=== PATIENT | male | born 1970 | race Caucasian/White ===

== ENCOUNTER 2020-01-05 13:56 | Outpatient (CLI) | payer SELFPAY ==
[2020-01-05 15:07] LABS: Alanine Aminotransferase 27 U/L (4-50); Albumin Level 4.4 g/dL (3.5-5.1); Alkaline Phosphatase 92 U/L (38-126); Aspartate Amino Transferase 29 U/L (17-59); Bilirubin,Total 0.9 mg/dL (0.2-1.3); Blood Urea Nitrogen 9 mg/dL (9-20); Carbon Dioxide 25 mmol/L (22-30); Chloride 103 mmol/L (98-107); Cholesterol 221 mg/dL (0-200); Estimated Glomerular Filt Rate > 60; Glucose 131 mg/dL (75-110); HDL Direct 29 mg/dL; Potassium 4.2 mmol/L (3.4-5.0); Sodium 135 mmol/L (137-145); Triglycerides 294 mg/dL (<150)
[2020-01-05 16:28] LABS: LDL Cholesterol Direct 146 mg/dL
== END 2020-01-05 13:57 | disposition home or self-care (01) ==
PROVIDERS: PCP Emergency Medicine; Visit Provider Internal Medicine Cardiovascular Disease
DX: E78.00 Pure hypercholesterolemia, unspecified (principal)
CPT/HCPCS: 36415; 80053; 80061

== ENCOUNTER 2021-08-17 16:42 | Inpatient (IN) | payer OTHER, SELFPAY ==
[2021-08-17] VITALS (22 sets, daily range): BP systolic 125–158; BP diastolic 92–141; PULSE 69–85; RESP 14–30; TEMP 36.6–36.7; O2SAT 97–100
--- NOTE | ~2021-08-17 | XR_ITS ---
EXAMINATION: XR chest 2V EXAM DATE: 08/17/2021 17:10 INDICATION: Chest pain across frontal contrast, radiating to left arm. TECHNIQUE: Frontal and lateral projections of the chest obtained and reviewed. Comparison is made to prior examination from 06/05/2019. FINDINGS: The lungs are clear. There are no pleural effusions. The cardiomediastinal silhouette is within normal limits. There is no pneumothorax suspected. The bones and soft tissues are unremarkab le. There are cholecystectomy clips. IMPRESSION: No acute cardiopulmonary findings. Reviewed, dictated and finalized at location G. LOGGING OPERATOR MUD ANALYSIS
--- NOTE | ~2021-08-17 | CT_ITS ---
EXAMINATION: CTA chest EXAM DATE: 08/17/2021 20:59 INDICATION: chest pain that radiates down left arm. TECHNIQUE: Spiral CT of the chest following intravenous injection of 100 mL Omnipaque 350. Axial, co carl and sagittal images of the chest were reviewed. Coronal maximum intensity pixel images of ches t reviewed. The dose-length product (DLP) for this examination was 735.58 mGy-cm. The exposure was tailored according to patient size (auto mA exposure control), and iterative reconstruction (ASIR) wa s used as additional dose reduction technique. There is no prior study for comparison. FINDINGS: No pulmonary emboli suspected. No thoracic aortic dissection. Thoracic aorta is normal in caliber. There is moderate-sized gastroesophageal hiatal hernia. There is 3 mm right upper lobe nonca lcified granuloma. There is mosaic attenuation involving both lungs. This is suspected to be most likely due to expirato ry phase of imaging. Differential diagnosis for this includes air trapping (asthma, bronchiolitis ob literans), vasculitis, or groundglass opacity. Groundglass opacity can be caused acutely by edema, i nfection (viral pneumonia or PCP in an immunocompromised patients) or hemorrhage. It can also be cau sed by chronic processes such as hypersensitivity pneumonitis, nonspecific interstitial pneumonitis ( NSIP), cryptogenic organized pneumonia, desquamative interstitial pneumonitis(DIP). There are no pleural or pericardial effusions. Tracheobronchial tree is patent. There is no media stinal, hilar or axillary lymphadenopathy. There is no pneumothorax. Heart normal in size. Ther e is moderate coronary arterial calcification, arterial sclerosis. There are cholecystectomy clips. There is thoracic spondylosis without osteoblastic or osteolytic lesions identified. IMPRESSION: 1. Faint bilateral mosaic attenuation, probably some air trapping but can't exclude faint groundglas s airspace disease. 2. Moderate-sized gastroesophageal hiatal hernia. Reviewed, dictated and finalized at location G. SHORT AND DAMAGE CLERK IMPRESSION: 1. Faint bilateral mosaic attenuation, probably some air trapping but can't ex clude faint groundglass airspace disease. 2. Moderate-sized gastroesophageal hiatal hernia.
--- NOTE | 2021-08-17 16:45 | ECG_ITS ---
Measurements Intervals [place] Rate: 77 P: 33 UT: 149 QRS: 39 QRSD: 98 T: 61 QT: 356 QTc: 404 Interpretive Statements SINUS RHYTHM INCOMPLETE RIGHT BUNDLE BRANCH BLOCK BORDERLINE ECG Electronically Signed On 08-17-2021 17:31:59 CLINICAL RESEARCH NURSE by Matthew Herrera D.O.
[2021-08-17 17:10] LABS: Basophils Absolute Auto 0.1 K/mm3 (0.0-0.1); Eosinophils Absolute Auto 0.1 K/mm3 (0-0.3); Eosinophils Percent Auto 1.6 % (0-4.4); Hematocrit 46.7 % (42.0-52.0); Hemoglobin 15.6 g/dL (14.0-18.0); Immature Granulocyte Absolute 0.03 K/mm3 (0.00-0.031); Immature Granulocyte Percent A 0.4 % (0-0.5); Lymphocytes Absolute Auto 3.02 K/mm3 (0.9-3.2); Lymphocytes Percent Auto 36.3 % (18.3-44.2); Mean Corpuscular HGB Conc 33.4 g/dl (32-36); Mean Corpuscular Hemoglobin 29.6 pg (26-34); Mean Corpuscular Volume 88.6 fl (80-100); Mean Platelet Volume 8.9 fl (7.4-10.4); Monocytes Absolute Auto 0.9 K/mm3 (0.1-0.6); Monocytes Percent Auto 10.5 % (2.6-8.5); Neutrophils Absolute Auto 4.2 K/mm3 (1.3-6.7); Neutrophils Percent Auto 50.2 % (45.5-73.1); Platelet Count Result 445 k/mm3 (150-375); Red Blood Count 5.27 M/mm3 (4.6-6.20); Red Cell Distribution Width 12.3 % (11.5-14.5); White Blood Count 8.3 K/mm3 (4.5-10.0)
[2021-08-17 17:20] LABS: INR 0.9; Prothrombin Time 12.1 Seconds (11.1-14.7)
[2021-08-17 17:21] LABS: Alanine Aminotransferase 23 U/L (4-50); Albumin Level 4.4 g/dL (3.5-5.1); Alkaline Phosphatase 110 U/L (38-126); Anion Gap 12 mmol/L (8-16); Aspartate Amino Transferase 25 U/L (17-59); Bilirubin,Total 0.5 mg/dL (0.2-1.3); Blood Urea Nitrogen 16 mg/dL (9-20); Calcium 9.2 mg/dL (8.4-10.2); Carbon Dioxide 22 mmol/L (22-30); Chloride 102 mmol/L (98-107); Estimated CRCL calculation 83 ml/min; Estimated Glomerular Filt Rate > 60; Glucose 135 mg/dL (65-110); Lipase 56 U/L (23-300); Partial Thromboplastin Time 25.5 SECONDS (22.3-36.8); Potassium 4.1 mmol/L (3.4-5.0); Sodium 136 mmol/L (137-145)
[2021-08-17 17:32] LABS: Troponin I < 0.012 ng/mL (0.000-0.034)
[2021-08-17 20:27] LABS: Troponin I 0.133 ng/mL (0.000-0.034)
--- NOTE | 2021-08-17 20:31 | ED.CHESTPAIN ---
HPI - Chest Pain General Chief Complaint: Chest Pain Stated Complaint: CHEST PAIN, HX PA Time Seen by Provider: 08/17/21 19:53 History of Present Illness HPI narrative: Patient is a 51-year-old male who presents ER with chest pain. Occurred around 330 this afternoon. Central and pressure. Intense radiating up into the neck, down the left arm, and into the left hip. Lasted 15 minutes and then improved on its own. He has had persistent central chest pressure since then. No nausea/vomiting/diaphoresis. No abdominal bloating. No association with eating or drinking. Has history of PA x2. He sees Dr. Herrera. Reports he takes baby aspirin daily as well as niacin. He continues to smoke cigarettes. Related Data Home Medications Medication Instructions Recorded Confirmed aspirin [Aspirin Low Dose] 81 mg PO BID 08/18/21 08/18/21 niacin 500 mg PO BID 08/18/21 08/18/21 Allergies Allergy/AdvReac Type Severity Reaction Status Date / Time tomato Allergy Severe Anaphylaxis Verified 08/18/21 00:12 acetaminophen Allergy Intermediate Vomiting Verified 08/17/21 19:24 Review of Systems Review of Systems: All systems reviewed & are unremarkable except as noted in HPI and below Constitutional: Constitutional: Denies chills, Denies fever(s) and Denies weakness ENT: Denies nasal congestion and Denies sore throat Cardiovascular: Cardiovascular: Reports chest pain, Denies rapid heart rate and Reports radiating jaw, neck or arm pain Respiratory: Respiratory: Denies cough, Denies dyspnea and Denies wheezing Gastrointestinal: Gastrointestinal: Denies abdominal pain, Denies bloating, Denies diarrhea, Denies nausea and Denies vomiting Genitourinary: Genitourinary: Denies urinary frequency and Denies urinary incontinence Neurologic: Denies headache(s), Denies focal weakness and Denies numbness [facility] Past Medical History Medical History (Updated 08/18/21 @ 04:02 by Mary Li DO) Diastolic dysfunction Echocardiogram 06/06/2019: EF 65-70%, mild LVH, grade 1 diastolic dysfunction, [id number] aortic insufficiency Hypercholesteremia Hypertriglyceridemia Methamphetamine abuse in remission Myocardial infarction Non-ST elevated myocardial infarction (non-STEMI) Multi-vessel coronary artery disease with 2 cardiac catheterizations October 2018 and June 2019 Recovering alcoholic in remission Right hand fracture Skull fracture Tobacco abuse disorder Ulcer Surgical History Surgical History (Updated 08/18/21 @ 03:58 by Mary Li DO) History of cardiac catheterization October 2018 and June 2019. History of heart artery stent Patient was transferred to [facility] October 2018 persistent to his left circumflex. He was transferred due to high risk PCI Hx of cholecystectomy Hx of tonsillectomy Status post open reduction with internal fixation of fracture Right 4th metacarpal Family History Family History Mother Diabetes mellitus Heart disease Family history of diabetes mellitus in first degree relative Family history of emphysema Family history of chronic obstructive pulmonary disease Cerebrovascular accident Family history of alcoholism Hypertension Sibling Sleep apnea Sibling Sleep apnea Grandparent , Grandfather with premature coronary artery disease Family history of cardiovascular disease Family history of arthritis Father Family history of alcoholism Social History Social History (Updated 08/18/21 @ 03:48 by Mary Li DO) Social History: The patient reports that he has smoked up to 1.5 packs of cigarettes per day. He is now down to less than a pack of cigarettes per day. He started smoking at age 87 years old. He lives in a house with 7 other individuals including his 2 children, and 4 step children. He has 6 dogs. He used any smoke methamphetamines and crack cocaine but states he has not done so in 13 years
[2021-08-17] MEDS: HEPARIN SODIUM 5,000 UNITS/ML VIAL 4000 UNITS IV PUSH (21:27)
[2021-08-17] MEDS: NITROGLYCERIN OINTMENT 1 INCH DOSE 0.5 INCH TRANSDERM (21:27)
[2021-08-17] MEDS: HEPARIN SOD/D5W 100 UNITS/ML 25,000 UNITS/250 ML BAG 9 UNITS IV CONT (21:28)
[2021-08-17 23:39] LABS: Troponin I 0.571 ng/mL (0.000-0.034)
--- NOTE | 2021-08-17 23:55 | PM.IMHP ---
H&P: HPI History of Present Illness Date/Time: 08/17/21 22:25 Chief Complaint: Chest pain Narrative: 51-year-old male with past medical history coronary artery disease status post left circumflex stent, continued tobacco use, and noncompliance with cholesterol medications and dual antiplatelet therapy who presented to the ER via private vehicle with chest pain. The patient reported he started having left-sided chest pain that progressed into central chest pain and radiated up to the neck and down the left arm. The pain was a 7/10 in intensity and occurred at rest. He denied having any associated shortness of breath or diaphoresis. The pain was described as tight nature and similar to when he had his non STEMI in June of 2019. Patient and initially had difficulty with heart disease in October of 2018 at which time he had a cardiac catheterization at [facility] and was found to have complex disease and was sent to [facility] for intervention. He had a left circumflex drug-eluting stent placed. Shortly after his procedure he quit taking his Brilinta. The patient was then readmitted to the hospital June 2019 and had repeat cardiac catheterization which demonstrated 40-50% mid LAD stenosis with ectasia leading to a very small diminutive vessel with sluggish blood flow, patent distal left circ stent without significant luminal loss, ostial stenosis of OM 3 branch, mild nonobstructive disease of dominant RCA and preserved ejection fraction with EF of 70%. The patient followed up with Dr. Herrera Cardiology January 2020 but has not seen a physician since that time. He stated he lost his insurance and does not have a job. He recently reinstated his insurance. He states he has been taking 3 in 25 mg of aspirin b.i.d. and 500 mg of niacin b.i.d.. He has not been taking any other anti-platelet medications. He still continues to smoke a little less than a pack of cigarettes per day. He denies any lower extremity swelling or orthopnea. His daughter was at bedside states that the patient does snore. He is extremely poor dental health and reports that his teeth hurt on a daily basis. He has never had a colonoscopy. He denies any hematochezia or melena. He denies any symptoms of claudication. The patient did provide consent for his daughter to remain in the room while discussing his medical care. He is an [employer] but refuses to seek medical care at the [facility]. He states he would rather go without medical benefits than be evaluated at the [facility]. Review of Systems Review of Systems: 12 systems were reviewed with pertinent positives and negatives per HPI. Except as documented in the HPI, all other systems were reviewed and are negative. [facility] Past Medical History Medical History (Updated 08/18/21 @ 04:02 by Mary Li DO) Diastolic dysfunction Echocardiogram 06/06/2019: EF 65-70%, mild LVH, grade 1 diastolic dysfunction, [id number] aortic insufficiency Hypercholesteremia Hypertriglyceridemia Methamphetamine abuse in remission Myocardial infarction Non-ST elevated myocardial infarction (non-STEMI) Multi-vessel coronary artery disease with 2 cardiac catheterizations October 2018 and June 2019 Recovering alcoholic in remission Right hand fracture Skull fracture Tobacco abuse disorder Ulcer Surgical History Surgical History (Updated 08/18/21 @ 03:58 by Mary Li DO) History of cardiac catheterization October 2018 and June 2019. History of heart artery stent Patient was transferred to [facility] October 2018 persistent to his left circumflex. He was transferred due to high risk PCI Hx of cholecystectomy Hx of tonsillectomy Status post open reduction with internal fixation of fracture Right 4th metacarpal Family History Family History Mother Diabetes mellitus Heart disease Family history of diabetes mellitus in first degree relat
--- NOTE | 2021-08-17 23:55 | ADMGEN ---
This patient, Edgar Mccall, was admitted to IMU Room 200-01. Patient/family oriented to hospital policies and general routines including ID bracelet, bed and alarms, visiting hours, pain management, procedures, bathroom and other care routines, personal items, smoking policy, room service/diet, and visiting hours. Information on how to activate the Rapid Response Team has been discussed. Patient/Family are encouraged to report perceived risks to care and to ask questions if they do not understand what they are told or what they should do.
[2021-08-18] VITALS (24 sets, daily range): BP systolic 112–136; BP diastolic 60–97; PULSE 66–100; RESP 16–20; TEMP 35.8–36.6; O2SAT 96–100
--- NOTE | 2021-08-18 | ECHO_ITS ---
Patient Info Name: Edgar Mccall Age: 51 years : 1970 Gender: Male Ht: 66 in Wt: 209 lbs BSA: 2.14 m2 HR: 88 bpm BP: 122 / 60 mmHg Heart Rhythm: Sinus Rhythm Technical Quality: Fair Exam Date: 08/18/2021 12:58 PM Exam Location: [facility] Pulmonary Patient Status: Inpatient Admit Date: 08/18/2021 Staff Ordering Physician: Matthew Herrera DO Spring Layer: Melissa Peck RDCS Attending Provider: Mary Li DO Referring Physician: Javier LEWIS; Exam Type: CA echo dop color flow w con Study Info Indications - nstemi Complete two-dimensional, color flow and Doppler transthoracic echocardiogram is performed. Summary 1. Complete two-dimensional, color flow and Doppler transthoracic echocardiogram is performed. 2. Left ventricular chamber dimension is normal. 3. Definity contrast administered improved wall motion interpretation. 4. Left ventricular systolic function is normal, estimated at 65-70%. 5. The left ventricular diastolic function is normal. 6. E/e' 9 is minimally elevated. 7. There is mild aortic valve sclerosis. 8. No pulmonary hypertension, estimated pulmonary arterial systolic pressure is 16 mmHg. Left Ventricle E/e' 9 is minimally elevated. Definity contrast administered improved wall motion interpretation. Left ventricular chamber dimension is normal. Left ventricular systolic function is normal, estimated at 65-70%. The left ventricular diastolic function is normal. Right Ventricle Right ventricular systolic function is normal and with normal TAPSE 1.9 cm. Right ventricular chamber dimension is normal. Left Atria Left atrial chamber dimension is normal. Right Atria Right atrial chamber dimension is normal. Aortic Valve The aortic valve is trileaflet. There is mild aortic valve sclerosis. There is no aortic valve stenosis. There is no aortic valve regurgitation. Pulmonic Valve There is no pulmonic regurgitation. Mitral Valve There is no mitral valve stenosis. There is no mitral valve regurgitation. Tricuspid Valve There is no tricuspid valve regurgitation. No pulmonary hypertension, estimated pulmonary arterial systolic pressure is 16 mmHg. Pericardium/Pleural There is no pericardial effusion. Inferior Vena Cava Normal inferior vena cava with >50% collapse upon inspiration consistent with normal right atrial pressure, 5 mmHg. Aorta The aortic root size at the sinus of Valsalva is normal. Left Ventricular Outflow Tract Name Value Normal LVOT 2D LVOT Diameter 1.96 cm LVOT Doppler LVOT Peak Gradient 5 mmHg LVOT Mean Gradient 2 mmHg LVOT VTI 21.63 cm LVOT VTI/AV VTI Ratio 0.86 LVOT Stroke Volume 64.98 ml LVOT CO 4.25 l/min LVOT CI 1.99 L/min/m2 Pulmonic Valve Name Value Normal
[2021-08-18 03:44] LABS: Basophils Absolute Auto 0.1 K/mm3 (0.0-0.1); Basophils Percent Auto 1.1 % (0.2-1.2); Eosinophils Absolute Auto 0.2 K/mm3 (0-0.3); Eosinophils Percent Auto 1.6 % (0-4.4); Hematocrit 44.6 % (42.0-52.0); Hemoglobin 14.9 g/dL (14.0-18.0); Immature Granulocyte Absolute 0.05 K/mm3 (0.00-0.031); Immature Granulocyte Percent A 0.4 % (0-0.5); Lymphocytes Absolute Auto 4.74 K/mm3 (0.9-3.2); Lymphocytes Percent Auto 41.8 % (18.3-44.2); Mean Corpuscular HGB Conc 33.4 g/dl (32-36); Mean Corpuscular Hemoglobin 29.7 pg (26-34); Monocytes Percent Auto 8.9 % (2.6-8.5); Neutrophils Absolute Auto 5.2 K/mm3 (1.3-6.7); Neutrophils Percent Auto 46.2 % (45.5-73.1); Platelet Count Result 411 k/mm3 (150-375); Red Blood Count 5.01 M/mm3 (4.6-6.20); Red Cell Distribution Width 12.5 % (11.5-14.5); White Blood Count 11.3 K/mm3 (4.5-10.0)
[2021-08-18 03:59] LABS: Partial Thromboplastin Time 31.5 SECONDS (22.3-36.8)
[2021-08-18 04:22] LABS: LDL Cholesterol Direct 129 mg/dL
[2021-08-18] MEDS: HEPARIN SODIUM 5,000 UNITS/ML VIAL 4000 UNITS IV PUSH (04:22)
[2021-08-18 04:23] LABS: Cholesterol 246 mg/dL (0-200); HDL Direct 28 mg/dL
[2021-08-18 04:55] LABS: Triglycerides 635 mg/dL (<150)
--- NOTE | 2021-08-18 07:54 | PM.CNCAR ---
Assessment and Plan Assessment and plan (1) Non-STEMI (non-ST elevated myocardial infarction): Code(s): I21.4 - Non-ST elevation (NSTEMI) myocardial infarction Status: Acute Assessment and Plan: On aspirin, heparin drip. Start Metoprolol Tartate 12.5 mg BID, Atorvastatin 80 mg daily. He was non-compliant taking cardiac medication due to cost and no health insurance per patient. Obtain echo. Discussed with Dr. Murillo for [facility] today. Keep NPO. Risks/benefits/alternative treatment discussed with patient and he is agreeable for procedure. (2) CAD (coronary artery disease): Qualifiers: Coronary Disease-Associated Artery/Lesion type: [place] artery [place] vs. transplanted heart: [place] heart Associated angina: angina presence unspecified Qualified Code(s): I25.10 - Atherosclerotic heart disease of [place] coronary artery without angina pectoris Code(s): I25.10 - Atherosclerotic heart disease of [place] coronary artery without angina pectoris Status: Acute (3) Tobacco abuse disorder: Code(s): Z72.0 - Tobacco use Status: Chronic Assessment and Plan: Counseled regarding smoking cessation. (4) Hypercholesteremia: Code(s): E78.00 - Pure hypercholesterolemia, unspecified Status: Chronic Assessment and Plan: Start Atorvastatin. (5) Hypertension: Qualifiers: Hypertension type: primary hypertension Qualified Code(s): I10 - Essential (primary) hypertension Code(s): I10 - Essential (primary) hypertension Status: Acute Assessment and Plan: Stable. History of Present Illness History of Present Illness Consult date/time: 08/18/21 07:54 Reason for consult: NSTEMI. Patient is a 51 yr old man who is my regular cardiology patient presents to ED with chest pain. He has a history of CAD, hypertension, dyslipidemia, smoking. Reports chest pain started yesterday at 3 pm while resting and watching tv. He describes it as pressure like in left chest radiating to jaw and down his side to his left hip. No pain currently with NTP. He is smoking >1 ppd. Denies sob, orthopnea, PND, edema, dizziness, palpitations. EKG: Sinus rhythm, IRBBB. CXR: Unremarkable. CTA chest shows faint bilateral mosaic attenuation, probably air trapping. Moderate hiatal hernia. CBC and CMP are OK. Trop trending p from 0.13, to 0.57 to 1.7. Cardiovascular Procedures 06/09/[address] Pino: 40-50% mid LAD then ectasia and diminishes in size with sluggish flow; patent distal LCx stent; 70-80% distal LCx at branch point to PL branch. Cath (Dr. Pino at [facility]: Stenting of LCx with SHAAN with good results.) - 11/18/2018 Cath (Dr. Murillo for NSTEMI: LAD ectasia prox portion with 40-50% stenosis, Diag origin 80-90%, after Diag LAD 90%, distal LCx eccentric 90-95% at bifurcation of PL branch, RCA 30-40% distal. Referred for CABG for high risk PCI.) - 11/16/2018 Echo/[facility]GA:: Echo: EF 65-70%, mild LVH, grade I diastolic dysfunction, mild-mod AI. 06/06/19 Echo (EF 55-60%, hypokinetic inferolateral segment, mild LAE, mild MAC, trace AI, mild TR.) - 11/16/2018 Electrophysiology:: EKG (Sinus rhythm with sinus arrhythmia.) - 11/15/2018 Reason For Visit: nstemi Review of Systems Review of Systems: All systems reviewed & are unremarkable except as noted in HPI and below Constitutional: Constitutional: Reports as per HPI, Denies chills and Denies fever(s) Cardiovascular: Cardiovascular: Reports as per HPI, Reports chest pain, Denies leg edema and Denies lightheadedness Respiratory: Respiratory: Reports as per HPI and Denies dyspnea Gastrointestinal: Gastrointestinal: Reports as per HPI and Denies abdominal pain Genitourinary: Genitourinary: Reports as per HPI and Denies dysuria Musculoskeletal: Musculoskeletal: Reports as per HPI Neurologic: Reports as per HPI, Denies dizziness and Denies syncope PENDING SALE TO [facility] Past Medical History Medical History (Updated 08/18/21 @ 04:02 by Ammon
[2021-08-18] MEDS: ATORVASTATIN 40 MG TABLET 80 MG PO (07:56)
[2021-08-18] MEDS: ASPIRIN 81 MG ENTERIC TABLET PO (07:56)
[2021-08-18] MEDS: METOPROLOL TARTRATE 12.5 MG TABLET PO ×2 (07:56→21:37)
--- NOTE | 2021-08-18 08:36 | WPDMODSED ---
Moderate Sedation Note-Pt Data Patient Data Diagnosis: Acute coronary syndrome/non ST elevation [place] Present Complaint: Chest pain with radiation to left arm Procedure to be performed/Plan: Left heart catheterization Allergies Allergy/AdvReac Type Severity Reaction Status Date / Time tomato Allergy Severe Anaphylaxis Verified 08/18/21 00:12 acetaminophen Allergy Intermediate Vomiting Verified 08/17/21 19:24 Home Medications Medication Instructions Recorded Confirmed Type aspirin [Aspirin Low Dose] 81 mg PO BID 08/18/21 08/18/21 History niacin 500 mg PO BID 08/18/21 08/18/21 History Current Medications: Active Medications Aspirin (Aspirin 81 Mg Enteric Tablet) 81 mg PO QAM [facility] Last Admin: 08/18/21 07:56 Dose: 81 mg Documented by: Atorvastatin Calcium (Atorvastatin 40 Mg Tablet) 80 mg PO DAILY [facility] Last Admin: 08/18/21 07:56 Dose: 80 mg Documented by: Heparin Sodium (Porcine) (Heparin Sodium 5,000 Units/Ml Vial) 4,000 units IV PUSH PRN PRN PRN Reason: aPTT less than 55 seconds Last Admin: 08/18/21 04:22 Dose: 4,000 units Documented by: Heparin Sodium (Porcine) (Heparin Sodium 5,000 Units/Ml Vial) 3,000 units IV PUSH PRN PRN PRN Reason: aPTT 55 - 70 seconds Heparin Sodium/Dextrose (Heparin Sodium/D5w 100 Units/Ml) 25,000 units in 250 mls @ 12 mls/hr IV CONT .[id number] [facility]; Protocol Last Infusion: 08/18/21 04:25 Dose: 1,200 units/hr, 12 mls/hr Documented by: Metoprolol Tartrate (Metoprolol Tartrate 12.5 Mg Tablet) 12.5 mg PO Q12HR [facility] Last Admin: 08/18/21 07:56 Dose: 12.5 mg Documented by: Morphine Sulfate (Morphine Sulfate (*Crx) 4 Mg/Ml Inj) 4 mg IV PUSH Q2H PRN PRN Reason: Pain Rated 7-10 Niacin (Niacin Sa 500 Mg Tablet) 1,000 mg PO HS [facility] Non-Formulary Medication (Vascepa) 2 gram(s) BY MOUTH BID [facility] Stop: 09/17/21 08:59 Ondansetron HCl (Ondansetron Inj 4 Mg/2 Ml Vial) 4 mg IV PUSH Q4H PRN PRN Reason: Nausea Sedation/Anesthesia: No previous sedation/anesthesia problems (including family history). [facility] Past Medical History Medical History (Updated 08/18/21 @ 04:02 by Mary Li DO) Diastolic dysfunction Echocardiogram 06/06/2019: EF 65-70%, mild LVH, grade 1 diastolic dysfunction, [id number] aortic insufficiency Hypercholesteremia Hypertriglyceridemia Methamphetamine abuse in remission Myocardial infarction Non-ST elevated myocardial infarction (non-STEMI) Multi-vessel coronary artery disease with 2 cardiac catheterizations October 2018 and June 2019 Recovering alcoholic in remission Right hand fracture Skull fracture Tobacco abuse disorder Ulcer Surgical History Surgical History (Updated 08/18/21 @ 03:58 by Mary Li DO) History of cardiac catheterization October 2018 and June 2019. History of heart artery stent Patient was transferred to [facility] October 2018 persistent to his left circumflex. He was transferred due to high risk PCI Hx of cholecystectomy Hx of tonsillectomy Status post open reduction with internal fixation of fracture Right 4th metacarpal Family History Family History Mother Diabetes mellitus Heart disease Family history of diabetes mellitus in first degree relative Family history of emphysema Family history of chronic obstructive pulmonary disease Cerebrovascular accident Family history of alcoholism Hypertension Sibling Sleep apnea Sibling Sleep apnea Grandparent , Grandfather with premature coronary artery disease Family history of cardiovascular disease Family history of arthritis Father Family history of alcoholism Social History Social History (Updated 08/18/21 @ 03:48 by Mary Li DO) Social History: The patient reports that he has smoked up to 1.5 packs of cigarettes per day. He is now down to less than a pack of cigarettes per day. He started smoking at age 87 years old. He lives in a house with 7 other individual
--- NOTE | 2021-08-18 09:05 | PCCARD ---
NITRO PASTE REMOVED.
--- NOTE | 2021-08-18 09:36 | WPDCARDPROC ---
Cardiac Cath Procedure Note Date of procedure:: 08/18/21 Performing physician:: Arsenio uMrillo MD Indication:: Acute coronary syndrome/ non ST-elevation PA Brief clinical history:: this is a 51-year-old man known to have coronary disease with previous PCI to the circumflex. He continues to smoke cigarettes and is not compliant with his medication. He therefore not surprisingly came into the hospital with ischemic chest pain and had a modest troponin rise in this setting a follow-up angiogram has been recommended. Procedure Procedure performed:: Left ventriculogram coronary angiogram Angio-Seal to right femoral artery Sedation/Medication given:: fentanyl 50 mg Versed 2 mg case start time 9:12 a.m. case end time 9:29 a.m. sedation provided by Abigail Lawton RN, trained observer Access site:: right femoral artery Estimated blood loss:: 20 cc Procedure note:: patient was brought to the cardiac catheterization lab in the postabsorptive state where the right femoral triangle was prepared and draped in the normal fashion. Anesthesia was provided with 1% lidocaine infiltrated locally. Using the modified Seldinger technique the femoral artery was punctured and a 5 vascular sheath was placed. After this I used a 5 [place] angled pigtail catheter to measure left-sided hemodynamics and to inject LV g in the 30 degree our AO projection. After this the right coronary artery was engaged and injected using a standard 5 [place] JR4 catheter. The left coronary was then engaged and injected in multiple projections using standard 5 [place] FL4 catheter. The cine angiograms were then reviewed and the case was terminated was done of the femoral artery through the sheath after which an Angio-Seal device was deployed with a good hemostatic result. There were no apparent procedural complications he left the medical laboratory technical officer with no evidence of a groin hematoma. Findings:: Hemodynamics: Central aortic pressure was 126/76 left ventricle 126 over to end-diastolic pressure 14 there is no systolic gradient on pullback across the aortic valve. Left ventricle: The LV is normal in size the anteroapical segment is severely hypodynamic but not completely akinetic the remainder of the LV contracts well global ejection fraction is 55% by visual estimation. The left main coronary artery is short but nicely patent the left anterior descending artery is calcified and ectaticaly dilated proximally there is diffuse disease in the proximal 3rd of the LAD of about 40-50% stenosis. From the midportion to the apex the LAD is extremely small and diminutive in size. Angiographically unchanged compared with 2019 circumflex is a moderate caliber artery giving rise to 3 marginal branches and a posterior branch. There is diffuse disease of about 50% in 1st OM branch. The 2nd OM branch is diffusely diseased and extremely small in caliber. The 3rd OM branch is moderate size has a high-grade proximal stenosis of 80-90%. the trunk of the circumflex is stented with no significant loss of lumen in this case segment. The stented segment of the trunk of the circumflex with is across the origin of the 3rd OM branch that is described above. Angiographically this vessel was unchanged compared with 2019 the right coronary artery is large caliber and dominant to the posterior circulation the right coronary artery has mild diffuse disease in the 3rd portion there is a segment with about 50% stenosis. Once again angiographically this is unchanged compared with 2019 Conclusion:: 1. diffuse coronary artery disease with ongoing patency of the distal circumflex stent that was deployed in the remote past 2. proximal ectasia of the LAD with extremely small caliber of the distal LAD. This is a chronic finding 3. disease in the 3 marginal branches described above with patent stent in the trunk of the circumflex that was deployed a long time ago. Angiographically these lesions are
--- NOTE | 2021-08-18 10:36 | SUR.PHASEII ---
REPORT CALLED TO CELESTE BERNAL FROM IMU.
[2021-08-18] MEDS: SODIUM CHLORIDE 0.9% IV 1,000 ML 125 ML IV CONT (11:15)
[2021-08-18 12:32] LABS: Partial Thromboplastin Time 26.3 SECONDS (22.3-36.8)
[2021-08-18] MEDS: PERFLUTREN LIPID MICROSPHERES 1.5 ML VIAL DILUTED TO 10 ML TOTAL VOLUME IV PUSH (13:39)
--- NOTE | 2021-08-18 14:18 | PM.IMPN ---
Progress Note: A&P Assessment and Plan (1) Non-STEMI (non-ST elevated myocardial infarction): Code(s): I21.4 - Non-ST elevation (NSTEMI) myocardial infarction Status: Acute (2) Obesity: Qualifiers: Obesity type: due to excess calories Obesity classification: adult class 1 (BMI 30 - 34.9) Serious obesity comorbidity presence: with serious comorbidity Body mass index: BMI 34.0-34.9 Qualified Code(s): E66.09 - Other obesity due to excess calories; Z68.34 - Body mass index [BMI] 34.0-34.9, adult Code(s): E66.9 - Obesity, unspecified Status: Acute (3) Hypertension: Qualifiers: Hypertension type: primary hypertension Qualified Code(s): I10 - Essential (primary) hypertension Code(s): I10 - Essential (primary) hypertension Status: Acute (4) Patient non adherence: Code(s): Z91.19 - Patient's noncompliance with other medical treatment and regimen Status: Acute (5) Hypercholesteremia: Code(s): E78.00 - Pure hypercholesterolemia, unspecified Status: Chronic (6) Tobacco abuse disorder: Code(s): Z72.0 - Tobacco use Status: Chronic Additional Plan The patient presents to the ER with chest pain and has non STEMI with elevated troponins. Patient has known coronary artery disease with history of medical noncompliance. Will place patient on baby aspirin daily continue home niacin. Fasting lipid panel has been ordered. Cardiology has been consulted. The patient denies any symptoms of congestive heart failure at this time will defer repeating echocardiogram to discretion of the curb setter. Patient's pain is improved after nitroglycerin paste administration. Will continue heparin drip. Troponins are still trending upward. Will repeat troponin with a.m. labs. Patient did have elevated blood pressures but improved after nitropaste administered. Will defer antihypertensive medication treatment to Cardiology Service. The patient seems reluctant to spend any money on medications focusing on [place] medication options would likely be best. Greater than 10 minutes was spent in smoking cessation education. Extensive time was also spent in discussing the importance of adherence to medication regimens specially given the patient's extensive cardiac history and how medication nonadherence and tobacco abuse is shortening his life span. Patient does snore and would benefit from an outpatient sleep study. He would also benefit from diet and lifestyle modification. 08/18/21 Patient has had acute NSTEMI Left heart catheterization shows multivessel disease Case reviewed with Cardiology recommendations appreciated Lovenox full-dose anticoagulation b.i.d. until discharge Will trend troponins anticipate discharge after downward trend Continued smoking cessation Education required Subjective Date/time seen: 08/18/21 14:18 Patient feeling fine undergoing echocardiogram time of my evaluation he is interested in going home however he is noted to have elevated troponin. Case reviewed with Cardiology. Orders placed Exam Narrative: PHYSICAL EXAM: General: Poor hygiene, appears older than stated age, obese HEENT: Multiple dental caries broken off at the gumline, periodontitis, pupils are equal and reactive, no oral pharyngeal erythema, tobacco staining of facial hair Respiratory: Decreased breath sounds bilaterally, no increased work of breathing Cardiovascular: Regular rate, regular rhythm, 2+ bilateral radial pedal pulses Gastrointestinal: Soft, nontender, obese, normoactive bowel sounds Skin: Tobacco staining to the fingers, no jaundice, no pallor Musculoskeletal: No clubbing, cyanosis or edema Neurological: Alert and oriented, speech is clear, no facial asymmetry Psychiatric: Appropriate mood and affect, cooperative Objective Data Vital Signs Vital Signs: Vital Signs - 24 hr 08/17/21 16:50 08/17/21 19:23 08/17/21 19:24 Temperature 97.8 F
[2021-08-18] MEDS: ENOXAPARIN 100 MG/ML SYRINGE 95 MG SUB-Q (15:33)
[2021-08-18] MEDS: CLOPIDOGREL BISULFATE 300 MG TABLET PO (15:41)
[2021-08-18] MEDS: NIACIN SA 500 MG TABLET 1000 MG PO (21:37)
[2021-08-19] VITALS (9 sets, daily range): BP systolic 99–120; BP diastolic 64–89; PULSE 67–88; RESP 18–20; TEMP 36.1–37.1; O2SAT 75–99
[2021-08-19] MEDS: ENOXAPARIN 100 MG/ML SYRINGE 95 MG SUB-Q (02:47)
--- NOTE | 2021-08-19 08:06 | PM.PNCARD ---
Progress Note: A&P Assessment and Plan (1) Non-STEMI (non-ST elevated myocardial infarction): Code(s): I21.4 - Non-ST elevation (NSTEMI) myocardial infarction Status: Acute Assessment and Plan: On aspirin, lovenox. On Metoprolol Tartate 12.5 mg BID, Atorvastatin 80 mg daily. He was non-compliant taking cardiac medication due to cost and no health insurance per patient. 08/18/21 Echo shows EF 60-65%. 08/18/21 [facility] with Dr. Murillo shows essentially unchanged coronaries from 2019 with moderate disease and sluggish flow. Continue antiplatelet agents with aspirin and Clopidogrel. Stop Lovenox. November d/c home from cardiology standpoint and f/u with me in 2 weeks. (2) CAD (coronary artery disease): Qualifiers: Coronary Disease-Associated Artery/Lesion type: [place] artery [place] vs. transplanted heart: [place] heart Associated angina: angina presence unspecified Qualified Code(s): I25.10 - Atherosclerotic heart disease of [place] coronary artery without angina pectoris Code(s): I25.10 - Atherosclerotic heart disease of [place] coronary artery without angina pectoris Status: Acute (3) Tobacco abuse disorder: Code(s): Z72.0 - Tobacco use Status: Chronic Assessment and Plan: Counseled regarding smoking cessation. (4) Hypercholesteremia: Code(s): E78.00 - Pure hypercholesterolemia, unspecified Status: Chronic Assessment and Plan: On Atorvastatin. (5) Hypertension: Qualifiers: Hypertension type: primary hypertension Qualified Code(s): I10 - Essential (primary) hypertension Code(s): I10 - Essential (primary) hypertension Status: Acute Assessment and Plan: Stable. Subjective Date/time seen: 08/19/21 08:06 Denies chest pain or sob today. He wants to go home. Exam Const: General: cooperative, healthy appearing and comfortable Resp: Auscultation: clear to auscultation bilaterally, no crackles, no rales, no rhonchi and no wheezes Cardio: Jugular venous distension: no JVD Rate: regular rate Rhythm: regular rhythm Heart sounds: no murmurs Peripheral pulses: dorsalis pedis present GI: GI Palp: No abdominal tenderness and Yes Soft to palpation Neuro: General: oriented to person, oriented to place and oriented to time Extrem: Right lower extremity: no edema Left lower extremity: no edema Objective Data Vital Signs Vital Signs: Vital Signs - 24 hr 08/18/21 08:44 08/18/21 09:45 08/18/21 10:00 Temperature 96.5 F L 97.8 F Pulse Rate 68 81 68 Pulse Rate [Bilateral] 83 72 Respiratory Rate 20 18 17 Blood Pressure 123/79 116/81 121/87 Pulse Oximetry 98 97 96 08/18/21 10:15 08/18/21 10:30 08/18/21 10:45 Temperature Pulse Rate 72 67 68 Pulse Rate [Bilateral] 73 72 Respiratory Rate 18 18 17 Blood Pressure 112/79 119/73 129/97 H Pulse Oximetry 96 97 98 08/18/21 11:15 08/18/21 11:45 08/18/21 12:00 Temperature 97.7 F 97.3 F L Pulse Rate 70 67 72 Pulse Rate [Bilateral] Respiratory Rate 18 20 20 Blood Pressure 134/82 126/88 Pulse Oximetry 97 96 97 08/18/21 12:46 08/18/21 14:00 08/18/21 16:00 Temperature 97.2 F L Pulse Rate 66 97 85 Pulse Rate [Bilateral] Respiratory Rate 20 20 Blood Pressure 131/84 Pulse Oximetry 97 97 08/18/21 16:36 08/18/21 18:00 08/18/21 19:32 Temperature 96.4 F L 97.6 F Pulse Rate 82 83 76 Pulse Rate [Bilateral] Respiratory Rate 20 20 Blood Pressure 121/71 135/83 Pulse Oximetry 97 100 08/18/21 20:00 08/18/21 21:37 08/18/21 22:00 Temperature Pulse Rate 81 70 100 Pulse Rate [Bilateral] Respiratory Rate Blood Pressure Pulse Oximetry 08/19/21 00:00 08/19/21 02:00 08/19/21 04:00 Temperature 96.9 F L 97.1 F L Pulse Rate 70 70 67 Pulse Rate [Bilateral] Respiratory Rate 20 20 Blood Pressure 116/65 115/71 Pulse Oximetry 99 99 08/19/21 06:00 Temperature Pulse Rate 70 Pulse Rate [Bilateral] Respiratory Rate
--- NOTE | 2021-08-19 08:30 | PM.PNCARD ---
Progress Note: A&P Assessment and Plan (1) CAD (coronary artery disease): Qualifiers: Coronary Disease-Associated Artery/Lesion type: [place] artery [place] vs. transplanted heart: [place] heart Associated angina: angina presence unspecified Qualified Code(s): I25.10 - Atherosclerotic heart disease of [place] coronary artery without angina pectoris Code(s): I25.10 - Atherosclerotic heart disease of [place] coronary artery without angina pectoris Status: Acute Assessment and Plan: Multivessel coronary artery disease with stenting of the circumflex in October of 2018. Reported noncompliance with anti-platelet medications and statin. He continues to smoke. I counseled him on the importance of adherence to his medication regimen and smoking cessation. On aspirin, Plavix, atorvastatin, metoprolol. Outpatient follow-up with Dr. Herrera (2) Non-STEMI (non-ST elevated myocardial infarction): Code(s): I21.4 - Non-ST elevation (NSTEMI) myocardial infarction Status: Acute Assessment and Plan: Presentation to the emergency department with chest pain. Initial workup showed positive an up trending serial cardiac enzymes, therefore coronary angiogram was recommended. He was taken to the slab inspector on 08/18/2019 to. Coronary angiography revealed the followin. diffuse coronary artery disease with ongoing patency of the distal circumflex stent that was deployed in the remote past 2. proximal ectasia of the LAD with extremely small caliber of the distal LAD. This is a chronic finding 3. disease in the 3 marginal branches described above with patent stent in the trunk of the circumflex that was deployed a long time ago. Angiographically these lesions are also unchanged compared with 2019 4. mild 50% stenosis in the 3rd portion of the RCA no change compared with 2019 5. apical left ventricular hypokinesis with ejection fraction of about 55%. (3) Tobacco abuse disorder: Code(s): Z72.0 - Tobacco use Status: Chronic Assessment and Plan: Discussed the importance of tobacco cessation. Subjective Date/time seen: 08/19/21 08:30 Review of Systems Review of Systems: All systems reviewed & are unremarkable except as noted in HPI and below Exam Const: General: comfortable, no acute distress, alert and awake Orientation/consciousness: patient oriented x3 HENMT: Head: normal to inspection Teeth and gingiva: poor dentition Eyes: General: appearance normal, both eyes and all related structures Pupils: Equal, round and reactive pupils present Neck: Neck: normal visual inspection, supple and no JVD Carotids: no bruits Resp: Auscultation: clear to auscultation bilaterally and diminished lung sounds Cardio: Rate: regular rate Rhythm: regular rhythm Skin: General skin exam: normal color Other: Right groin arterial access site free from bleeding, hematoma, pain, swelling, or bruit. Neuro: Speech: normal speech Extrem: General: normal to inspection and no edema Psych: Mental Status: mental status grossly normal Speech and movement: Normal speech and movement present Affect: Anxious affect present Objective Data Vital Signs Vital Signs: Vital Signs - 24 hr 08/18/21 08:44 08/18/21 09:45 08/18/21 10:00 Temperature 35.8 C L 36.6 C Pulse Rate 68 81 68 Pulse Rate [Bilateral] 83 72 Respiratory Rate 20 18 17 Blood Pressure 123/79 116/81 121/87 Pulse Oximetry 98 97 96 08/18/21 10:15 08/18/21 10:30 08/18/21 10:45 Temperature Pulse Rate 72 67 68 Pulse Rate [Bilateral] 73 72 Respiratory Rate 18 18 17 Blood Pressure 112/79 119/73 129/97 H Pulse Oximetry 96 97 98 08/18/21 11:15 08/18/21 11:45 08/18/21 12:00 Temperature 36.5 C 36.3 C L Pulse Rate 70 67 72 Pulse Rate [Bilateral] Respiratory Rate 18 20 20 Blood Pressure 134/82 126/88 Pulse Oximetry 97 96 97 08/18/21 12:46 08/18/21 14:00 08/18/21 16:00 Temperature 36.2 C L Pulse Rate 66 97 85
[2021-08-19] MEDS: CLOPIDOGREL BISULFATE 75 MG TABLET PO (08:34)
[2021-08-19] MEDS: METOPROLOL TARTRATE 12.5 MG TABLET PO (08:34)
[2021-08-19] MEDS: ASPIRIN 81 MG ENTERIC TABLET PO (08:34)
[2021-08-19] MEDS: ATORVASTATIN 40 MG TABLET 80 MG PO (08:34)
--- NOTE | 2021-08-19 14:59 | PM.DS ---
DS: Admitting Diagnosis Discharge Date 08/19/2021 Admitting Diagnosis (1) Non-STEMI (non-ST elevated myocardial infarction): (2) Obesity: (3) Hypertension: (4) Patient non adherence: (5) Hypercholesteremia: (6) Tobacco abuse disorder: DS: Discharge Diagnosis Discharge Diagnosis (1) Non-STEMI (non-ST elevated myocardial infarction): Code(s): I21.4 - Non-ST elevation (NSTEMI) myocardial infarction Status: Acute (2) Obesity: Qualifiers: Body mass index: BMI 34.0-34.9 Obesity classification: adult class 1 (BMI 30 - 34.9) Obesity type: due to excess calories Serious obesity comorbidity presence: with serious comorbidity Qualified Code(s): E66.09 - Other obesity due to excess calories; Z68.34 - Body mass index [BMI] 34.0-34.9, adult Code(s): E66.9 - Obesity, unspecified Status: Acute (3) Hypertension: Qualifiers: Hypertension type: primary hypertension Qualified Code(s): I10 - Essential (primary) hypertension Code(s): I10 - Essential (primary) hypertension Status: Acute (4) Patient non adherence: Code(s): Z91.19 - Patient's noncompliance with other medical treatment and regimen Status: Acute (5) Hypercholesteremia: Code(s): E78.00 - Pure hypercholesterolemia, unspecified Status: Chronic (6) Tobacco abuse disorder: Code(s): Z72.0 - Tobacco use Status: Chronic DS: Summary Hospital Course Reason for hospitalization: Chest pain Hospital Course: Please refer to admission H&P. Briefly, this is [id number] [place] with past medical history coronary artery disease status post left circumflex stent, continued tobacco use, and noncompliance with cholesterol medications and dual antiplatelet therapy who presented to the ER via private vehicle with chest pain. The patient reported he started having left-sided chest pain that progressed into central chest pain and radiated up to the neck and down the left arm. The pain was described as tight nature and similar to when he had his non STEMI in June of 2019. The patient followed up with Dr. Herrera Cardiology January 2020 but has not seen a physician since that time. He stated he lost his insurance and does not have a job. He recently reinstated his insurance. He states he has been taking 3 in 25 mg of aspirin b.i.d. and 500 mg of niacin b.i.d.. He has not been taking any other anti-platelet medications. He still continues to smoke a little less than a pack of cigarettes per day. He denies any lower extremity swelling or orthopnea. His daughter was at bedside states that the patient does snore. He is extremely poor dental health and reports that his teeth hurt on a daily basis. He has never had a colonoscopy. He denies any hematochezia or melena. He denies any symptoms of claudication. Patient refuses to seek medical care at the . Upon admission, the patient was appropriately started on aspirin, lovenox, Metoprolol Tartate 12.5 mg BID, Atorvastatin 80 mg daily 1-History of Multivessel coronary artery disease with stenting of the circumflex in October of 2018, with persistent noncompliance with anti-platelet medications and statin. He continues to smoke. 2-Acute Non-ST elevation (NSTEMI) myocardial infarction: Patient presented with classic pain. Initial workup showed uptrending serial cardiac enzymes, therefore coronary angiogram was recommended. Coronary angiography(08/18/2021) revealed the followin. diffuse coronary artery disease with ongoing patency of the distal circumflex stent that was deployed in the remote past 2. proximal ectasia of the LAD with extremely small caliber of the distal LAD. This is a chronic finding 3. disease in the 3 marginal branches described above with patent stent in the trunk of the circumflex that was deployed a long time ago. Angiographically these lesions are also unchanged compared with 2019 4. mild 50% stenosis in the 3rd portion o
== END 2021-08-19 15:02 | disposition home or self-care (01) | DRG 190 ==
LOC: ANHED 22:07 → ANHIMU 23:02
PROVIDERS: Emergency Medicine; Hospitalist; Internal Medicine Cardiovascular Disease; Specialist; Admitting Provider Internal Medicine; Emergency Provider Emergency Medicine; PCP Emergency Medicine; Visit Provider Internal Medicine
PROC: 4A023N7 Measurement of Cardiac Sampling and Pressure, Left Heart, Percutaneous Approach (ICD-10-PCS; CPT 93452; principal; 2021-08-18 08:45)
PROC: 4A023N7 Measurement of Cardiac Sampling and Pressure, Left Heart, Percutaneous Approach (ICD-10-PCS; 2021-08-18 08:45)
DX: I21.4 Non-ST elevation (NSTEMI) myocardial infarction (principal); I25.10 Atherosclerotic heart disease of native coronary artery without angina pectoris; Z68.34 Body mass index [BMI] 34.0-34.9, adult; E66.09 Other obesity due to excess calories; I10 Essential (primary) hypertension; E78.00 Pure hypercholesterolemia, unspecified; F17.210 Nicotine dependence, cigarettes, uncomplicated; R06.83 Snoring; I25.2 Old myocardial infarction; Z91.14 Patient's other noncompliance with medication regimen; Z95.5 Presence of coronary angioplasty implant and graft
CPT/HCPCS: 36415; 71046; 71275; 80053; 80061; 83690; 84484; 85025; 85610; 85730; 93005; 93458; 96365; 96366; 99285; A9270; C1760; C1887; C1894; C8929; G0269; G0378; G0379; J1644; J1650; J2250; J3010; J7030; Q9957; Q9967

== ENCOUNTER 2022-01-19 11:00 | Outpatient (RCR) | payer OTHER, SELFPAY | END 2022-01-29 11:32 | disposition home or self-care (01) | LOC: ANHCPREHAB 11:00 | PROVIDERS: PCP Emergency Medicine; Visit Provider Internal Medicine Cardiovascular Disease | DX: I50.89 Other heart failure (principal) | CPT/HCPCS: 93798 ==

== ENCOUNTER 2022-04-17 09:27 | Outpatient (CLI) | payer OTHER, SELFPAY ==
--- NOTE | ~2022-04-17 | XR_ITS ---
EXAMINATION: XR chest 2V DATE: 04/17/2022 10:20 INDICATION: Shortness of breath and wheezing. TECHNIQUE: Frontal and lateral views of the chest were obtained. COMPARISON: Chest 2 views 08/17/2021, chest CT 08/17/2021 FINDINGS: The chest demonstrates clear lungs without pneumonia, pleural effusion, or pneumothorax. Th e heart size is normal. There is a moderate-sized hiatal hernia. Surgical clips in the right upper qu adrant are likely from cholecystectomy. IMPRESSION: 1. Moderate-sized hiatal hernia. Reviewed, dictated and finalized at location A.
[2022-04-17 10:06] LABS: Basophils Absolute Auto 0.1 K/mm3 (0.0-0.1); Basophils Percent Auto 1.1 % (0.2-1.2); Eosinophils Absolute Auto 0.1 K/mm3 (0-0.3); Eosinophils Percent Auto 1.3 % (0-4.4); Hematocrit 46.8 % (42.0-52.0); Hemoglobin 15.3 g/dL (14.0-18.0); Immature Granulocyte Absolute 0.01 K/mm3 (0.00-0.031); Immature Granulocyte Percent A 0.1 % (0-0.5); Lymphocytes Absolute Auto 1.54 K/mm3 (0.9-3.2); Lymphocytes Percent Auto 21.8 % (18.3-44.2); Mean Corpuscular HGB Conc 32.7 g/dl (32-36); Mean Corpuscular Hemoglobin 26.9 pg (26-34); Mean Corpuscular Volume 82.2 fl (80-100); Monocytes Percent Auto 13.5 % (2.6-8.5); Neutrophils Absolute Auto 4.4 K/mm3 (1.3-6.7); Neutrophils Percent Auto 62.2 % (45.5-73.1); Platelet Count Result 339 k/mm3 (150-375); Red Blood Count 5.69 M/mm3 (4.6-6.20); Red Cell Distribution Width 14.7 % (11.5-14.5); White Blood Count 7.1 K/mm3 (4.5-10.0)
[2022-04-17 10:20] LABS: Alanine Aminotransferase 33 U/L (6-50); Albumin Level 4.2 g/dL (3.5-5.1); Alkaline Phosphatase 116 U/L (38-126); Anion Gap 9 mmol/L (8-16); Aspartate Amino Transferase 30 U/L (17-59); Bilirubin,Total 0.7 mg/dL (0.2-1.3); Blood Urea Nitrogen 13 mg/dL (9-20); Calcium 8.9 mg/dL (8.4-10.2); Carbon Dioxide 26 mmol/L (22-30); Chloride 104 mmol/L (98-107); Cholesterol 172 mg/dL (0-200); Estimated Glomerular Filt Rate > 60; Glucose 120 mg/dL (65-110); HDL Direct 22 mg/dL; Potassium 4.1 mmol/L (3.4-5.0); Sodium 139 mmol/L (137-145); Triglycerides 287 mg/dL (<150)
[2022-04-17 10:34] LABS: LDL Cholesterol Direct 95 mg/dL
[2022-04-17 10:51] LABS: Add Urine Microscopic? NO; Appearance Urine Clear (Clear); Bilirubin Urine Negative (Negative); Blood Urine Negative (Negative); Color Urine Yellow (Yellow); Glucose Urine UA Negative (Negative); Ketones Urine Negative (Negative); Leukocyte Esterase Ur Negative LEU/UL (NEGATIVE); Nitrate Urine Negative (Negative); Protein Urine Negative (Negative); Specific Grav Ur 1.025 (1.001-1.035)
[2022-04-17 10:52] LABS: Free T4 Free Thyroxine 1.11 ng/mL (0.78-2.19); Vitamin D 25 Hydroxy 34.9 ng/mL
[2022-04-17 10:57] LABS: Hemoglobin A1C 6.2 % (<5.7)
[2022-04-17 11:05] LABS: Prostate Specific Antigen 0.7 ng/mL (< OR = 4.0)
[2022-04-17 11:13] LABS: Creatinine Urine 270.1 mg/dL
[2022-04-17 11:17] LABS: MALB Creatinine Ratio 10.5 mg/g (0-30); Microalbumin Urine Random 28.3 mg/L (0-16.7)
== END 2022-04-17 09:28 | disposition home or self-care (01) ==
PROVIDERS: PCP Emergency Medicine; Referring Provider Emergency Medicine; Visit Provider Internal Medicine Cardiovascular Disease
DX: R06.02 Shortness of breath (principal); R06.2 Wheezing; I25.10 Atherosclerotic heart disease of native coronary artery without angina pectoris; E78.5 Hyperlipidemia, unspecified; E11.9 Type 2 diabetes mellitus without complications; I10 Essential (primary) hypertension; K44.9 Diaphragmatic hernia without obstruction or gangrene
CPT/HCPCS: 36415; 71046; 80053; 80061; 81003; 82043; 82306; 83036; 84153; 84439; 84443; 85025; G0103

== ENCOUNTER 2022-11-14 10:08 | Outpatient (CLI) | payer OTHER, SELFPAY ==
--- NOTE | ~2022-11-14 | XR_ITS ---
EXAMINATION: XR UGIAC w barium swallow DATE: 11/14/2022 10:57 INDICATION: Hiatal hernia TECHNIQUE: The patient drank thick barium and gas producing crystals. Conventional supine abdomen rad iographs and fluoroscopy of the esophagus, stomach, and proximal small bowel were performed. Fluorosc opy exposure time was 2.3 minutes. The DAP for this procedure was 196.83 Gycm2. COMPARISON: None. FINDINGS: There is no mass or stricture of the esophagus. Esophageal motility is normal. There is a s mall to moderate-sized periesophageal hiatal hernia. There was no gastroesophageal reflux with provoc ative maneuvers. The stomach and proximal small bowel show normal folding patterns. IMPRESSION: 1. Small to moderate sized periesophageal hiatal hernia. Reviewed, dictated and finalized at location A.
== END 2022-11-14 10:09 | disposition home or self-care (01) ==
LOC: ANHIMG 10:09
PROVIDERS: PCP Emergency Medicine; Visit Provider Surgery
DX: K21.9 Gastro-esophageal reflux disease without esophagitis (principal); K44.9 Diaphragmatic hernia without obstruction or gangrene
CPT/HCPCS: 74246

== ENCOUNTER 2022-11-26 11:32 | Outpatient (CLI) | payer OTHER, SELFPAY | END 2022-11-26 11:33 | disposition home or self-care (01) | LOC: ANHSURGERY 11:39 | PROVIDERS: PCP Emergency Medicine; Visit Provider Surgery | DX: K40.20 Bilateral inguinal hernia, without obstruction or gangrene, not specified as recurrent (principal); Z01.818 Encounter for other preprocedural examination | CPT/HCPCS: 36415; 86850; 86900; 86901 ==

== ENCOUNTER 2022-12-03 00:44 | Day surgery (SDC) | payer OTHER, SELFPAY ==
[2022-11-25 14:40] VITALS: BMI 32.3
--- NOTE | 2022-11-25 14:48 | PC.NURSE ---
Report to the Outpatient Waiting Room, entrance under the green pavilion located off [facility], at time 10:00 on date 12/03/22. Planned Procedure Time: 12:00. Time changes happen often and if your time is changed the preop area will call you the afternoon before. - You and your visitor will be asked to self-screen and do not enter if you have any COVID symptoms. - A mask is optional within the hospital at this time. Patients may have clear liquids (water, carbonated beverages, clear teas, apple juice) until 3 hours prior to surgery (9:00) with a maximum of 20 ounces. - No food from midnight until time of surgery Take the following medications with a SIP of water the morning of surgery: METOPROLOL, TOPIRAMATE DO NOT STOP ANY OF YOUR OTHER PRESCRIPTION MEDICATIONS PRIOR TO SURGERY EXCEPT THE FOLLOWING Medications to discontinue per physician: CLOPIDOGREL Date to take last dose: 11/27/22 (PER DR. DEE'S INSTRUCTIONS) Please no make-up, nail italian, hairspray, perfume, deodorant, or body powder the day of surgery. No jewelry (including any body piercings) or valuables the day of surgery, leave them at home. Please take a shower or bath the night before, or the morning of, surgery with an antibacterial soap (HIBICLENS). Wear comfortable, loose fitting clothing. - Jewelry must be removed prior to entering the operating room. Rings and piercings that are not removed may be cut off. - The hospital will not accept responsibility for valuables. - Please leave all valuables, including medications, at home the day of surgery. If you are going home after surgery, a licensed putaway driver must drive you home. - NO public transportation without another adult if you receive anesthesia. - We recommend that an adult stay with you for 24 hours following discharge. - We also recommend that you do not drive, make important decision, drink alcoholic beverages, or take any drugs that were not prescribed by your health care provider for at least 24 hours after your discharge time. Follow any additional instructions given to you from your surgeon. If you or anyone in your household have experienced Covid symptoms in the past week, please notify your surgeon or the nurse liaison at the phone number below for possible testing. Telephone instructions given to PT - LATOYA SIMMONS and asked if any additional questions and then verbalized understanding. Patient advised to call surgeon office or pre surgery nurse liaison [phone] if any additional questions.
--- NOTE | 2022-12-02 16:27 | PM.SD2 ---
Same Day Admit/Disch: HPI History of Present Illness Chief complaint: bilateral inguinal hernia Narrative: Edgar Mccall is a 52 year old male who has been troubled with right groin pain and a bulge. For the last 8 months he has had right groin pain when he coughs or sneezes. This pain goes up towards his right chest and shoulder. He had a CT scan that showed fat containing bilateral inguinal hernias. Exam in my office showed him to have bilateral inguinal hernias although the right was larger than the left. 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 He has a history of acute coronary syndrome and had angioplasty with stenting in 2019. He takes Plavix and aspirin. He is taken to surgery now for robotic laparoscopic repair of bilateral inguinal hernias. [facility] Past Medical History Medical History Diastolic dysfunction Echocardiogram 06/06/2019: EF 65-70%, mild LVH, grade 1 diastolic dysfunction, [id number] aortic insufficiency Hypercholesteremia Hypertriglyceridemia Methamphetamine abuse in remission Myocardial infarction Non-ST elevated myocardial infarction (non-STEMI) Multi-vessel coronary artery disease with 2 cardiac catheterizations October 2018 and June 2019 Recovering alcoholic in remission Right hand fracture Skull fracture Tobacco abuse disorder Ulcer Surgical History Surgical History History of cardiac catheterization October 2018 and June 2019. History of heart artery stent Patient was transferred to [facility] October 2018 persistent to his left circumflex. He was transferred due to high risk PCI Hx of cholecystectomy Hx of tonsillectomy Status post open reduction with internal fixation of fracture Right 4th metacarpal Family History Family History Mother Diabetes mellitus Heart disease Family history of diabetes mellitus in first degree relative Family history of emphysema Family history of chronic obstructive pulmonary disease Cerebrovascular accident Family history of alcoholism Hypertension Sibling Sleep apnea Sibling Sleep apnea Grandparent , Grandfather with premature coronary artery disease Family history of cardiovascular disease Family history of arthritis Father Family history of alcoholism Social History Social History Social History: The patient reports that he has smoked up to 1.5 packs of cigarettes per day. He is now down to less than a pack of cigarettes per day. He started smoking at age 87 years old. He lives in a house with 7 other individuals including his 2 children, and 4 step children. He has 6 dogs. He used any smoke methamphetamines and crack cocaine but states he has not done so in 13 years. He is recovering alcoholic and quit drinking alcohol 8 years ago. Primary care physician: Dr. Leoncio Strange Code status: Full code Smoking packs per day: 1 Smoking cigarettes per day: 20.0 Years smoked: 44 Smoking pack-years: 44.00 Smoking status: Former smoker Tobacco type: cigarettes Second hand tobacco smoke exposure: Yes Smoking end date: 08/02/21 Alcohol intake: former Alcohol use details: QUIT LATE 2015/EARLY 2016 Substance use: current Substance use type: marijuana and methamphetamine Other substance usage details: THC FOR ANXIETY AND SLEEP Last use: QUIT METH 2005 Living arrangements: with family Occupation/Education: unemployed Gender identity (if verbalized by the patient): Male Spiritual care concerns: No Agree to blood products: Yes Same Day Admit/Disch: Med Pre-admit Medications Home Medications Medication Instructions Recorded Confirmed Type aspirin 81 mg tablet,delayed 81 mg PO DAILY 08/18/21 11/25/22 History release (Jatinder
[2022-12-03] VITALS (21 sets, daily range): BP systolic 112–194; BP diastolic 62–101; PULSE 58–90; RESP 14–24; TEMP 36.2–36.4; O2SAT 93–98
--- NOTE | 2022-12-03 11:07 | WPDHPUPDATE1 ---
History and Physical Update Update Date/Time: 12/03/22 11:07 History and Physical has been reviewed, including an updated exam of the patient. There are NO changes in the patient's condition. Risks, benefits, and alternatives have been discussed and questions answered. Patient agrees to proceed with procedure.
[2022-12-03] MEDS: KETOROLAC 15 MG/ML VIAL (*BKC) IV PUSH (11:15)
--- NOTE | 2022-12-03 11:42 | WPDANESEPPF ---
Anes - Initial Pre Proc Eval Procedure: Operation Date: 12/03/22 12:00 Proposed Procedures p Robotic Laparoscopic Bilateral Inguinal Hernia Repair - Frankie Blum MD Date/Time: 12/03/22 11:42 Surgeon: Frankie Blum MD Pre Op Diagnosis: bilateral inguinal hernia Patient Data Age: 52 Gender: M Height: 1.7 m Weight: 93.6 kg Last Vital Signs Temp 36.4 C 12/03/22 11:26 Pulse 74 12/03/22 11:26 Resp 14 12/03/22 11:26 BP 138/80 12/03/22 11:26 Pulse Ox 97 12/03/22 11:26 O2 Del Method Room Air 12/03/22 11:26 Allergies Allergy/AdvReac Type Severity Reaction Status Date / Time tomato Allergy Severe Anaphylaxis Verified 11/25/22 14:36 acetaminophen Allergy Intermediate Vomiting Verified 11/25/22 14:36 Home Medications Medication Instructions Recorded Confirmed Type aspirin 81 mg tablet,delayed 81 mg PO DAILY 08/18/21 11/25/22 History release (Jon Low Dose Aspirin) niacin 500 mg tablet 500 mg PO TID 08/18/21 11/25/22 History atorvastatin 80 mg tablet 80 mg PO DAILY #30 tabs 10/20/21 11/25/22 Rx clopidogrel 75 mg tablet 75 mg PO QAM #30 tabs 10/20/21 11/25/22 Rx metoprolol tartrate 25 mg tablet 12.5 mg PO BID #30 tabs 10/20/21 11/25/22 Rx famotidine 10 mg tablet 10 mg PO DAILY 10/19/22 11/25/22 History aspirin 325 mg tablet 325 mg PO HS 11/25/22 11/25/22 History rimegepant 75 mg disintegrating 75 mg PO ONCE PRN Migraine Headache 11/25/22 11/25/22 History tablet (Nurtec ODT) topiramate 25 mg tablet 25 mg PO BID 11/25/22 11/25/22 History Patient hx anesthesia problems: none Family hx anesthesia problems: none Results Review: All pre-operative results and documents have been reviewed as part of the pre-operative evaluation. [facility] Past Medical History Medical History Diastolic dysfunction Echocardiogram 06/06/2019: EF 65-70%, mild LVH, grade 1 diastolic dysfunction, [id number] aortic insufficiency Hypercholesteremia Hypertriglyceridemia Methamphetamine abuse in remission Myocardial infarction Non-ST elevated myocardial infarction (non-STEMI) Multi-vessel coronary artery disease with 2 cardiac catheterizations October 2018 and June 2019 Recovering alcoholic in remission Right hand fracture Skull fracture Tobacco abuse disorder Ulcer Surgical History Surgical History History of cardiac catheterization October 2018 and June 2019. History of heart artery stent Patient was transferred to [facility] October 2018 persistent to his left circumflex. He was transferred due to high risk PCI Hx of cholecystectomy Hx of tonsillectomy Status post open reduction with internal fixation of fracture Right 4th metacarpal Family History Family History Mother Diabetes mellitus Heart disease Family history of diabetes mellitus in first degree relative Family history of emphysema Family history of chronic obstructive pulmonary disease Cerebrovascular accident Family history of alcoholism Hypertension Sibling Sleep apnea Sibling Sleep apnea Grandparent , Grandfather with premature coronary artery disease Family history of cardiovascular disease Family history of arthritis Father Family history of alcoholism Social History Social History Social History: The patient reports that he has smoked up to 1.5 packs of cigarettes per day. He is now down to less than a pack of cigarettes per day. He started smoking at age 87 years old. He lives in a house with 7 other individuals including his 2 children, and 4 step children. He has 6 dogs. He used any smoke methamphetamines and crack cocaine but states he has not done so in 13 years. He is recovering alcoholic and quit drinking alcohol 8 years ago. Primary care physici
[2022-12-03] MEDS: LACTATED RINGERS 1,000 ML 30 ML IV CONT ×2 (11:45→14:59)
[2022-12-03] MEDS: ceFAZolin 2 GM/D5W 50 ML 2 GM/50 ML BAG IVPB (12:04)
[2022-12-03] MEDS: BUPIVACAINE/EPINEPHRINE 0.5% 50 ML VIAL 30 ML INFILTRATE (12:43)
[2022-12-03] MEDS: ALBUTEROL SULFATE NEB 2.5 MG/3 ML INH INHALATION (15:20)
[2022-12-03] MEDS: LABETALOL HCL INJ 100 MG/20 ML VIAL IV PUSH (15:20)
--- NOTE | 2022-12-03 15:21 | SUR.PHASEI ---
labetolol given with bp 187/101 and heart rate 84,orders from dr izaguirre
--- NOTE | 2022-12-03 15:24 | W.PM.PROC2 ---
Procedure Note - Detailed Date of Procedure 12/03/22 Pre-op Diagnosis bilateral inguinal hernia Post-op Diagnosis Same Procedure Performed Robotic laparoscopic repair bilateral inguinal hernias with mesh Surgeon Frankie Blum MD Mechanical Test Engineer Ra LIM Anesthesia General and Local (0.5% Marcaine with epinephrine) Indications Patient was experiencing severe right groin pain with sneezing and coughing, other strenuous activities. He had a CT scan ordered by his primary care physician which showed bilateral fat containing inguinal hernias. He was seen in the office found to have a large right inguinal hernia as well as I left inguinal hernia by exam. He is taken to surgery now for robotic laparoscopic repair of bilateral inguinal hernias. Findings The right-sided hernia was an indirect hernia. The left-sided hernia had a very small direct hernia and an indirect hernia. Description of Procedure The patient was taken to surgery and induced into general anesthesia. The abdomen is prepped and draped. The initial trocar was placed just to the right of the midline above the umbilicus. This was a 5 mm applied Medical optical trocar. Local anesthetic was infiltrated prior to making the incision and placing the trocar. After placement and insufflation, we placed an 8 mm robotic trocar in the right upper abdomen at the same level as the initial trocar. Local was infiltrated prior to placement of this trocar. The camera was moved to this location. I then exchanged the initial 5 mm port for an 8 mm robotic trocar. Finally a left-sided trocar was placed again using local anesthetic and then placing an 8 mm robotic trocar. Patient was placed in Trendelenburg. The robot was brought into the field and the camera was docked. The camera was targeted. We then placed the operating instruments in the 2 side trocars and positioned these appropriately. The surgeon then went to the robotic console. Dissection was started on the right side. A peritoneal flap was created well above the indirect hernia defect. The flap was started laterally and proceeded over to the median umbilical ligament. The peritoneal flap was then carefully dissected both lateral and medial to the indirect hernia. Medially we dissected down to the pubis. There was some bleeding from the venous branches of the inferior epigastric vessels. Several attempts at cautery were used to control the bleeding and eventually it stopped but there was more bleeding than usual making visualization somewhat difficult. The rectus muscle on both the right side and the medial part of the left rectus were dissected. Laterally the dissection was carried down to below the pectinate line. Then turned our attention to the indirect hernia defect. Traction was placed on the herniated peritoneum and careful dissection was carried out. Transversalis fascia fibers were divided. We carefully dissected the spermatic cord vessels laterally away from the hernia sac. Continued dissection allowed completely freeing the hernia sac from the cord structures and transversalis fascia. Dissection was then continued so that the cord structures were free of the peritoneum and the mesh could lay at least 2-3 cm posterior to the hernia defect. Dissection was also continued couple of cm posterior to the pubis. 17 x 12 cm right sided 3DMax mesh was then brought into the field. It was positioned appropriately. It was sutured in place with 3-0 Vicryl. Sutures were placed in the pubis, the medial anterior aspect of the mesh and the lateral anterior aspect of the mesh. A 2 0 V lock was then used to close the peritoneum. The needles to the Vicryl and the lock were then removed. We turned our attention to the left-sided hernia. In similar fashion a peritoneal flap was created incising anterior to the hernias. We dissected the flap posteriorly both medially and laterally to the internal ring and the inferior epigastric vessels. Freddy saravia
[2022-12-03] MEDS: fentaNYL CITRATE INJ (*CRX) 100 MCG/2 ML VIAL 25 MCG IV PUSH ×4 (15:39→15:56)
[2022-12-03] MEDS: LACTATED RINGERS 1,000 ML 100 ML IV CONT (18:25)
--- NOTE | 2022-12-03 18:31 | ADMGEN ---
This patient, Edgar Mccall, was admitted to 3 [facility] Surg Room 327-01. Patient/family oriented to hospital policies and general routines including ID bracelet, bed and alarms, visiting hours, pain management, procedures, bathroom and other care routines, personal items, smoking policy, room service/diet, and visiting hours. Information on how to activate the Rapid Response Team has been discussed. Patient/Family are encouraged to report perceived risks to care and to ask questions if they do not understand what they are told or what they should do.
[2022-12-03] MEDS: METOPROLOL TARTRATE 12.5 MG TABLET PO (18:54)
[2022-12-03] MEDS: TOPIRAMATE 25 MG TABLET PO (18:56)
[2022-12-03] MEDS: ASPIRIN 325 MG TABLET PO (20:49)
[2022-12-03] MEDS: oxyCODONE HCL (*CRX) 5 MG TAB IR PO (21:03)
[2022-12-04] MEDS: oxyCODONE HCL (*CRX) 5 MG TAB IR PO (03:08)
[2022-12-04] MEDS: LACTATED RINGERS 1,000 ML 100 ML IV CONT (03:10)
[2022-12-04 03:43] VITALS: BP 145/76; PULSE 86; RESP 18; TEMP 36.3; O2SAT 95
[2022-12-04 04:31] VITALS: PULSE 108; PULSE 63
[2022-12-04] MEDS: PANTOPRAZOLE 40 MG TABLET PO (05:48)
[2022-12-04 07:45] VITALS: BP 113/68; PULSE 75; RESP 18; TEMP 36.7; O2SAT 94
[2022-12-04] MEDS: TOPIRAMATE 25 MG TABLET PO (08:20)
[2022-12-04] MEDS: NIACIN SA 500 MG TABLET PO (08:20)
[2022-12-04 08:21] VITALS: PULSE 84
[2022-12-04] MEDS: METOPROLOL TARTRATE 12.5 MG TABLET PO (08:21)
[2022-12-04] MEDS: ATORVASTATIN 40 MG TABLET 80 MG PO (08:21)
[2022-12-04] MEDS: FAMOTIDINE 20 MG TABLET PO (08:21)
[2022-12-04 08:29] LABS: Hematocrit 42.1 % (42.0-52.0); Hemoglobin 13.7 g/dL (14.0-18.0); Mean Corpuscular HGB Conc 32.5 g/dl (32-36); Mean Corpuscular Hemoglobin 28.7 pg (26-34); Mean Corpuscular Volume 88.1 fl (80-100); Mean Platelet Volume 9.5 fl (7.4-10.4); Platelet Count Result 347 k/mm3 (150-375); Red Blood Count 4.78 M/mm3 (4.6-6.20); Red Cell Distribution Width 13.5 % (11.5-14.5); White Blood Count 20.9 K/mm3 (4.5-10.0)
[2022-12-04] MEDS: ENOXAPARIN 40 MG/0.4 ML SYRINGE SUB-Q (08:42)
[2022-12-04 08:43] LABS: Anion Gap 10 mmol/L (8-16); Blood Urea Nitrogen 21 mg/dL (9-20); Calcium 8.5 mg/dL (8.4-10.2); Carbon Dioxide 23 mmol/L (22-30); Chloride 100 mmol/L (98-107); Estimated CRCL calculation 101 ml/min; Estimated Glomerular Filt Rate > 60; Glucose 154 mg/dL (65-110); Potassium 3.9 mmol/L (3.4-5.0); Sodium 133 mmol/L (137-145)
[2022-12-04 11:04] VITALS: BP 117/70; PULSE 70; RESP 18; TEMP 36.2; O2SAT 97
--- NOTE | 2022-12-04 12:00 | PM.DS ---
DS: Admitting Diagnosis Discharge Date 12/04/2022 Admitting Diagnosis Bilateral inguinal hernias History of acute coronary syndrome and coronary angioplasty with stenting Chronic anti-platelet therapy with aspirin and Plavix. Recovering alcoholic Former smoker DS: Discharge Diagnosis Discharge Diagnosis (1) Bilateral inguinal hernia: Code(s): K40.20 - Bilateral inguinal hernia, without obstruction or gangrene, not specified as recurrent Status: Chronic Assessment and Plan: Patient underwent robotic laparoscopic bilateral inguinal hernia repair on 12/03/2022. His surgery was done in the afternoon and he was very slow to wake up and having a fair amount of postoperative pain. He was observed in the hospital overnight rather than going home on 12/03/2022. He was troubled with severe heartburn the night after surgery but no significant incisional pain and he was voiding adequately. The day after surgery was quite awake and comfortable and wished to go home. CBC and BMP the morning after surgery were suitable and he was able to be discharged in good condition. (2) GERD (gastroesophageal reflux disease): Code(s): K21.9 - Gastro-esophageal reflux disease without esophagitis Status: Chronic Assessment and Plan: Patient known to have heartburn that responds well to Pepcid twice a day. Recent upper GI showed a moderate paraesophageal hiatal hernia. Plan is to discuss possible surgical treatment of the paraesophageal hiatal hernia during follow-up from his inguinal hernia surgery done this admission. He will go home on his Pepcid. (3) History of heart artery stent: Code(s): Z95.5 - Presence of coronary angioplasty implant and graft Status: Chronic (4) Antithrombotic medication administered: Status: Chronic Assessment and Plan: Plavix will be held until 12/08/2022. Patient will continue to take 325 mg aspirin daily. DS: Summary Hospital Course Hospital Course: Patient observed overnight due to somnolence and postoperative discomfort. He was doing well and discharged the morning after surgery. Status at Discharge Overall status at discharge: patient is progressing back to baseline Time Spent with Patient Time attestation: Total time spent providing and/or coordinating discharge services: Time spent: Less than 30 minutes DS: Data Data Completed and Pending Labs on day of discharge: Labs from last 24 hours 12/04/22 08:20 WBC 20.9 H RBC 4.78 Hgb 13.7 L Hct 42.1 MCV 88.1 MCH 28.7 MCHC 32.5 RDW 13.5 Plt Count 347 MPV 9.5 Sodium 133 L Potassium 3.9 Chloride 100 Carbon Dioxide 23 Anion Gap 10 BUN 21 H Creatinine 0.80 Estim Creat Clear Calc 101 Estimated GFR > 60 Glucose 154 H Calcium 8.5 Discharge Plan Discharge Patient Disposition: Home, Self-Care Discharge Instructions: 1. May shower the day after surgery over incisions. 2. Call office for: -Wound increasingly painful or bleeding -Vomiting -Fever of greater than 101 degrees 3. Expect some blood on dressing and old blood on skin. 4. If no bowel movement for three days, take 1 oz. (30 ml) Milk of Magnesia, if no results, take Fleets enema. 5. No heavy lifting > 15-20 pounds for 2 weeks. 6. No driving for 3 days or while taking narcotic pain medications. 7. Up walking 10-30 minutes three times per day. 8. Resume previous home medications. 9. Follow-up 10-14 days in office for wound check or as previously scheduled. 10. Oral pain medications prescription to be sent home with patient. 11. NUTRITION: Start out by drinking fluids and increase your diet as tolerated. If you experience nausea, try dry toast, crackers, and 7-UP. If nausea or vomiting persists, contact your surgeon?s office. 12. Wear athletic supporter when not sleeping or bathing. 13. Use incentive spirometer
== END 2022-12-04 12:55 | disposition home or self-care (01) ==
LOC: ANHSURGERY 15:51 → ANH3MEDSUR 17:42
PROVIDERS: PCP Emergency Medicine; Visit Provider Surgery
PROC: 8E0Y4CZ Robotic Assisted Procedure of Lower Extremity, Percutaneous Endoscopic Approach (ICD-10-PCS; CPT 49650; principal; 2022-12-03 12:00)
DX: K40.20 Bilateral inguinal hernia, without obstruction or gangrene, not specified as recurrent (principal); I11.9 Hypertensive heart disease without heart failure; E78.00 Pure hypercholesterolemia, unspecified; E78.1 Pure hyperglyceridemia; I25.2 Old myocardial infarction; F10.21 Alcohol dependence, in remission; F15.21 Other stimulant dependence, in remission; Z95.5 Presence of coronary angioplasty implant and graft; Z79.82 Long term (current) use of aspirin; Z79.02 Long term (current) use of antithrombotics/antiplatelets; F17.210 Nicotine dependence, cigarettes, uncomplicated; F12.90 Cannabis use, unspecified, uncomplicated; E66.9 Obesity, unspecified; Z68.32 Body mass index [BMI] 32.0-32.9, adult
CPT/HCPCS: 49650; S2900; 36415; 80048; 85027; 94640; A9270; C1781; J0330; J0690; J1100; J1170; J1650; J1885; J2250; J2405; J2704; J2710; J3010; J7030; J7120

== ENCOUNTER 2023-01-06 08:41 | Outpatient (CLI) | payer OTHER, SELFPAY ==
[2023-01-06 09:35] LABS: Hematocrit 46.1 % (42.0-52.0); Hemoglobin 14.8 g/dL (14.0-18.0); Mean Corpuscular HGB Conc 32.1 g/dl (32-36); Mean Corpuscular Volume 87.3 fl (80-100); Mean Platelet Volume 9.4 fl (7.4-10.4); Platelet Count Result 420 k/mm3 (150-375); Red Blood Count 5.28 M/mm3 (4.6-6.20); Red Cell Distribution Width 13.2 % (11.5-14.5); White Blood Count 8.3 K/mm3 (4.5-10.0)
[2023-01-06 09:41] LABS: Hemoglobin A1C 6.3 % (<5.7)
[2023-01-06 09:52] LABS: Anion Gap 5 mmol/L (8-16); Blood Urea Nitrogen 23 mg/dL (9-20); Calcium 9.2 mg/dL (8.4-10.2); Carbon Dioxide 27 mmol/L (22-30); Chloride 105 mmol/L (98-107); Estimated Glomerular Filt Rate > 60; Glucose 114 mg/dL (65-110); Potassium 4.6 mmol/L (3.4-5.0); Sodium 137 mmol/L (137-145)
[2023-01-06 10:20] LABS: Creatinine Urine 52.5 mg/dL
[2023-01-06 10:25] LABS: MALB Creatinine Ratio 18.1 mg/g (0-30); Microalbumin Urine Random 9.5 mg/L (0-16.7)
== END 2023-01-06 08:42 | disposition home or self-care (01) ==
PROVIDERS: PCP Emergency Medicine; Visit Provider Emergency Medicine
DX: E87.1 Hypo-osmolality and hyponatremia (principal); D72.829 Elevated white blood cell count, unspecified; E11.9 Type 2 diabetes mellitus without complications
CPT/HCPCS: 36415; 80048; 82043; 83036; 85027

== ENCOUNTER 2024-01-15 03:21 | Emergency (ER) | payer OTHER, SELFPAY ==
[2024-01-15] VITALS (12 sets, daily range): BP systolic 118–146; BP diastolic 80–102; PULSE 73–85; RESP 15–32; O2SAT 94–98
--- NOTE | ~2024-01-15 | CT_ITS ---
EXAMINATION: CT abdomen pelvis w con DATE: 01/15/2024 06:02 INDICATION: Right upper quadrant abdominal pain radiating to back. History of cholecystectomy. TECHNIQUE: Computed tomography (CT) of the abdomen and pelvis was performed with 100 CC Omnipaque 350 intravenous contrast. Automated exposure control and iterative reconstruction technique were employe d. Exam dose: 590.55 mGy-cm total exam DLP. COMPARISON: 11/14/2022 air-contrast upper gastrointestinal series FINDINGS: Lung bases are clear of infiltrate or consolidation. Normal heart size. Prominent coronary calcifications. No pericardial or pleural effusion. Mild to moderate paraesophageal hiatal hernia. There are small probable cyst of the hepatic dome posteriorly. The liver otherwise appears unremarkab le. No surface nodularity. No bile duct dilatation. Status post cholecystectomy. No pancreatic mass lesion, calcification or ductal dilatation. Normal splenic size. Normal morphology of the adrenal glands. 8 mm probable right renal cyst. Indeterminate mildly irregular approximately 2.1 cm mass of the upper pole of the left kidney. Hypern ephroma is not excluded. Renal MRI examination is recommended. No urinary tract calculus or hydroureteronephrosis. The urinary bladder is unremarkable. Mild prostat e enlargement. There is evidence, calcification but normal caliber of the abdominal aorta. No intraperitoneal or ret roperitoneal or pelvic mass lesion or adenopathy or ascites is noted. Normal appendix. Diverticulosis of left and right colon; no CT evidence of diverticulitis. No bowel obstruction or int raperitoneal free air. Small fat-containing umbilical hernia. No suspicious osteolytic or osteoblastic lesions. IMPRESSION: Mild to moderate size paraesophageal hiatal hernia Very small hepatic dome cyst Status post cholecystectomy 8 mm probable right renal cyst Indeterminate mildly irregular 2.1 cm mass of upper pole left kidney; hypernephroma is not excluded. Renal MRI examination is recommended Normal appendix Diverticulosis of the colon; no evidence of diverticulitis Dr. Shepard telephoned the report including the left upper pole renal mass and recommendation for noneme rgent renal MRI examination to emergency room physician Dr. Fuller on 01/15/2024 at 0658 hours Reviewed, dictated and finalized at [facility]. Reviewed, dictated and finalized at [facility]. IMPRESSION: Mild to moderate size paraesophageal hiatal hernia Very small hepatic dome cyst Status post cholecystectomy 8 mm probable right renal cyst Indeterminate mildly irregular 2.1 cm mass of upper pole left kidney; hyperneph chidi is not excluded. Renal MRI examination is recommended Normal appendix Diverticulosis of the colon; no evidence of diverticulitis Dr. Shepard telephoned the report including the left upper pole renal mass and rec ommendation for nonemergent renal MRI examination to emergency room physician Gely Fuller on 01/15/2024 at 0658 hours
--- NOTE | ~2024-01-15 | XR_ITS ---
XR chest 1V portable DATE: 01/15/2024 04:24 INDICATION: Abdominal pain TECHNIQUE: Portable upright AP chest on 01/15/2024 at 0422 hours COMPARISON: 04/17/2022 PA and lateral chest FINDINGS: Heart size appears within normal limits. No pulmonary infiltrate or consolidation, pleural effusion or pulmonary vascular congestion or pneumothorax is detected. Surgical clips, right upper quadrant consistent with cholecystectomy. Moderate hiatal hernia. IMPRESSION: No active cardiopulmonary disease Reviewed, dictated and finalized at [facility].
--- NOTE | 2024-01-15 03:25 | ECG_ITS ---
Test Date: 2024-01-15 03:27:45 Measurements Intervals [place] Rate: 75 P: 50 [place]: 140 QRS: 35 QRSD: 98 T: 83 QT: 367 QTc: 411 Interpretive Statements SINUS RHYTHM POSSIBLE RIGHT VENTRICULAR CONDUCTION DELAY [RSR (QR) IN V1/V2] No previous ECG available for comparison Electronically Signed On 01-16-2024 12:53:13 CDT by Last Crespo M.D.
[2024-01-15 03:35] LABS: Basophils Absolute Auto 0.1 K/mm3 (0.0-0.1); Basophils Percent Auto 0.9 % (0.2-1.2); Eosinophils Absolute Auto 0.2 K/mm3 (0-0.3); Hematocrit 48.6 % (42.0-52.0); Immature Granulocyte Absolute 0.04 K/mm3 (0.00-0.031); Immature Granulocyte Percent A 0.3 % (0-0.5); Lymphocytes Absolute Auto 3.95 K/mm3 (0.9-3.2); Lymphocytes Percent Auto 32.3 % (18.3-44.2); Mean Corpuscular Hemoglobin 30.9 pg (26-34); Mean Corpuscular Volume 88.4 fl (80-100); Mean Platelet Volume 9.7 fl (7.4-10.4); Monocytes Absolute Auto 1.3 K/mm3 (0.1-0.6); Monocytes Percent Auto 10.4 % (2.6-8.5); Neutrophils Absolute Auto 6.6 K/mm3 (1.3-6.7); Neutrophils Percent Auto 54.1 % (45.5-73.1); Platelet Count Result 348 k/mm3 (150-375); Red Cell Distribution Width 12.8 % (11.5-14.5); White Blood Count 12.2 K/mm3 (4.5-10.0)
--- NOTE | 2024-01-15 04:06 | PC.NURSE ---
vrbo erp dr rosas ct abd pelvis with contrast and cxr order to be placed.
[2024-01-15 04:15] LABS: Appearance Urine Clear (Clear); Bacteria Urine None Seen /hpf; Bilirubin Urine Negative (Negative); Blood Urine Negative (Negative); Color Urine Yellow (Yellow); Glucose Urine UA Negative (Negative); Ketones Urine Negative (Negative); Leukocyte Esterase Ur Negative LEU/UL (Negative); Nitrate Urine Negative (Negative); Non Pathogenic Casts 0-2; Protein Urine Trace mg/dL (Negative); RBC Urine 0-2 /hpf (0-2); Specific Grav Ur 1.024 (1.001-1.035); Squamous Epithelial Cell Urine None Seen /hpf (Few); WBC Urine 0-5 /hpf (0-3); pH Urine 5.5 (5.0-9.0)
[2024-01-15 04:17] LABS: Add Urine Microscopic? YES
--- NOTE | 2024-01-15 05:33 | ED.GENADULT ---
HPI - General Adult General Chief complaint: Abdominal Pain Stated complaint: abd pain Time Seen by Provider: 01/15/24 03:59 History of Present Illness HPI narrative: this is a 53-year-old male presenting with right upper quadrant abdominal pain. At 2:30 a.m. he developed a sharp pain in the right upper quadrant that radiated to his back. It lasts for approximately 10 minutes before resolving. Patient then came to the ED for evaluation. He denies fevers chills nausea vomiting or diarrhea. Last bowel movement was yesterday and was normal without constipation, melena, hematochezia. patient has had a cholecystectomy in the past. Pain had no relation to food. Patient is currently pain-free Related Data Home Medications Medication Instructions Recorded Confirmed niacin 500 mg tablet 500 mg PO TID 08/18/21 01/04/23 famotidine 10 mg tablet 10 mg PO DAILY 10/19/22 01/04/23 aspirin 325 mg tablet 325 mg PO HS 11/25/22 01/04/23 rimegepant 75 mg disintegrating 75 mg PO ONCE PRN Migraine Headache 11/25/22 01/04/23 tablet (Nurtec ODT) topiramate 25 mg tablet 25 mg PO BID 11/25/22 01/04/23 Allergies Allergy/AdvReac Type Severity Reaction Status Date / Time tomato Allergy Severe Anaphylaxis Verified 01/04/23 10:49 acetaminophen Allergy Intermediate Vomiting Verified 01/04/23 10:49 PMFSH Past Medical History Medical History Diastolic dysfunction Echocardiogram 06/06/2019: EF 65-70%, mild LVH, grade 1 diastolic dysfunction, [id number] aortic insufficiency Hypercholesteremia Hypertriglyceridemia Methamphetamine abuse in remission Myocardial infarction Non-ST elevated myocardial infarction (non-STEMI) Multi-vessel coronary artery disease with 2 cardiac catheterizations October 2018 and June 2019 Recovering alcoholic in remission Right hand fracture Skull fracture Tobacco abuse disorder Ulcer Surgical History Surgical History H/O inguinal hernia repair 12/03/22 Robotic laparoscopic repair bilateral inguinal hernias with mesh History of cardiac catheterization October 2018 and June 2019. History of heart artery stent Patient was transferred to [facility] October 2018 persistent to his left circumflex. He was transferred due to high risk PCI Hx of cholecystectomy Hx of tonsillectomy Status post open reduction with internal fixation of fracture Right 4th metacarpal Family History Family History Mother Diabetes mellitus Heart disease Family history of diabetes mellitus in first degree relative Family history of emphysema Family history of chronic obstructive pulmonary disease Cerebrovascular accident Family history of alcoholism Hypertension Sibling Sleep apnea Sibling Sleep apnea Grandparent , Grandfather with premature coronary artery disease Family history of cardiovascular disease Family history of arthritis Father Family history of alcoholism Social History Social History Social History: The patient reports that he has smoked up to 1.5 packs of cigarettes per day. He is now down to less than a pack of cigarettes per day. He started smoking at age 87 years old. He lives in a house with 7 other individuals including his 2 children, and 4 step children. He has 6 dogs. He used any smoke methamphetamines and crack cocaine but states he has not done so in 13 years. He is recovering alcoholic and quit drinking alcohol 8 years ago. Primary care physician: Dr. Leoncio Strange Code status: Full code Smoking packs per day: 1 Smoking cigarettes per day: 20.0 Years smoked: 44 Smoking pack-years: 44.00 Smoking status: Former smoker Second hand tobacco smoke exposure: Yes Alcohol intake: former Alcohol use details: QUIT LATE 2015/EARLY 2017 Substance
[2024-01-15 05:39] LABS: Alanine Aminotransferase 24 U/L (6-50); Albumin Level 4.3 g/dL (3.5-5.1); Alkaline Phosphatase 120 U/L (38-126); Anion Gap 6 mmol/L (4-12); Aspartate Amino Transferase 29 U/L (17-59); Bilirubin,Total 0.7 mg/dL (0.2-1.3); Blood Urea Nitrogen 15 mg/dL (9-20); Calcium 8.9 mg/dL (8.4-10.2); Carbon Dioxide 23 mmol/L (22-30); Chloride 107 mmol/L (98-107); Estimated CRCL calculation 82 ml/min; Estimated Glomerular Filt Rate > 60; Glucose 112 mg/dL (65-110); Lipase 43 U/L (23-300); Potassium 4.1 mmol/L (3.4-5.0); Sodium 136 mmol/L (137-145)
== END 2024-01-15 07:33 | disposition home or self-care (01) ==
PROVIDERS: Physician Assistant; Emergency Provider Emergency Medicine; PCP Emergency Medicine
DX: R10.11 Right upper quadrant pain (principal); N28.89 Other specified disorders of kidney and ureter; I25.2 Old myocardial infarction; I51.89 Other ill-defined heart diseases; E78.00 Pure hypercholesterolemia, unspecified; E78.1 Pure hyperglyceridemia; F10.21 Alcohol dependence, in remission; Z95.5 Presence of coronary angioplasty implant and graft; Z87.891 Personal history of nicotine dependence; Z90.49 Acquired absence of other specified parts of digestive tract; Z79.82 Long term (current) use of aspirin; Z79.899 Other long term (current) drug therapy; K44.9 Diaphragmatic hernia without obstruction or gangrene; K57.90 Diverticulosis of intestine, part unspecified, without perforation or abscess without bleeding; R94.31 Abnormal electrocardiogram [ECG] [EKG]
CPT/HCPCS: 36415; 71045; 74177; 80053; 81001; 83690; 85025; 93005; 99284; Q9967

== ENCOUNTER 2024-06-27 10:38 | Emergency (ER) | payer OTHER, SELFPAY ==
[2024-06-27 10:40] VITALS: BP 132/76; PULSE 73; RESP 16; TEMP 36.4; O2SAT 96
[2024-06-27 11:28] VITALS: BP 135/86; PULSE 64; RESP 18; TEMP 36.6; O2SAT 98
[2024-06-27] MEDS: predniSONE 20 MG TABLET 60 MG PO (12:58)
[2024-06-27] MEDS: diphenhydrAMINE HCl INJ 50 MG/ML VIAL 25 MG IV PUSH (12:58)
--- NOTE | 2024-06-27 13:03 | ED.GENADULT ---
HPI - General Adult General Chief complaint: Skin/Abscess/Foreign Body Stated complaint: rash Time Seen by Provider: 06/27/24 12:04 History of Present Illness HPI narrative: Patient is a 54-year-old male who presents ER with rash to his face. Woke up this way this morning. Was recently exposed to a bunch of debris from a tree that he was helping cut down. It was covered in vomit I needs the had some leaves on them. Unsure if there was poison oak/sumac. No difficulty breathing or swelling. Does not take any oral medications other than his famotidine. He has itching of the face and around the eyes. No eye pain. No fevers or chills or sweats. Denies any facial washes, and fabric softener/detergent. Related Data Home Medications Medication Instructions Recorded Confirmed niacin 500 mg tablet 500 mg PO TID 08/18/21 01/04/23 famotidine 10 mg tablet 10 mg PO DAILY 10/19/22 01/04/23 aspirin 325 mg tablet 325 mg PO HS 11/25/22 01/04/23 rimegepant 75 mg disintegrating 75 mg PO ONCE PRN Migraine Headache 11/25/22 01/04/23 tablet (Nurtec ODT) topiramate 25 mg tablet 25 mg PO BID 11/25/22 01/04/23 Allergies Allergy/AdvReac Type Severity Reaction Status Date / Time tomato Allergy Severe Anaphylaxis Verified 01/04/23 10:49 acetaminophen Allergy Intermediate Vomiting Verified 01/04/23 10:49 Review of Systems Constitutional: Constitutional: Reports no additional constitutional complaints ENT: Reports system reviewed and no additional complaints, except as documented Integumentary/Breasts: Skin/Breast: Reports pruritus, Reports erythema, Reports rash and Denies skin ulcer PMFSH Past Medical History Medical History Diastolic dysfunction Echocardiogram 06/06/2019: EF 65-70%, mild LVH, grade 1 diastolic dysfunction, [id number] aortic insufficiency Hypercholesteremia Hypertriglyceridemia Methamphetamine abuse in remission Myocardial infarction Non-ST elevated myocardial infarction (non-STEMI) Multi-vessel coronary artery disease with 2 cardiac catheterizations October 2018 and June 2019 Recovering alcoholic in remission Right hand fracture Skull fracture Tobacco abuse disorder Ulcer Surgical History Surgical History H/O inguinal hernia repair 12/03/22 Robotic laparoscopic repair bilateral inguinal hernias with mesh History of cardiac catheterization October 2018 and June 2019. History of heart artery stent Patient was transferred to [facility] October 2018 persistent to his left circumflex. He was transferred due to high risk PCI Hx of cholecystectomy Hx of tonsillectomy Status post open reduction with internal fixation of fracture Right 4th metacarpal Family History Family History Mother Diabetes mellitus Heart disease Family history of diabetes mellitus in first degree relative Family history of emphysema Family history of chronic obstructive pulmonary disease Cerebrovascular accident Family history of alcoholism Hypertension Sibling Sleep apnea Sibling Sleep apnea Grandparent , Grandfather with premature coronary artery disease Family history of cardiovascular disease Family history of arthritis Father Family history of alcoholism Social History Social History Social History: The patient reports that he has smoked up to 1.5 packs of cigarettes per day. He is now down to less than a pack of cigarettes per day. He started smoking at age 87 years old. He lives in a house with 7 other individuals including his 2 children, and 4 step children. He has 6 dogs. He used any smoke methamphetamines and crack cocaine but states he has not done so in 13 years. He is recovering alcoholic and quit drinking alcohol 8 years ago. Primary care physician: Dr. Leoncio Strange Code status: Full code Smoking packs per day: 1 Smoking cigarettes per day: 20.0 Years smoked: 44 Smoking pack-years: 44.00 Smoking status: Former smoker Second hand tobacco smoke exposure: Yes Alcohol intake: former Alcohol use details: QUIT LATE 2015/EARLY 2016 Substance use: current Substance use type: marijuana and methamphetamine Other substance usage details: THC FOR ANXIETY AND SLEEP Last use: QUIT METH 2005 Lack of Transportation: No Lack of Food: Never True Current Housing: I Have Housing Concerned About Future Housing: No Difficulty Paying Gas/Electric Bills: No Difficulty Paying for Meds: No Currently Unemployed: No Education: Decline to Answer Difficulty w/ Childcare or Family Care: No Living arrangements: with family Occupation/Education: unemployed Gender identity (if verbalized by the patient): Male Spiritual care concerns: No Agree to blood products: Yes Exam Narrative: GENERAL: Well-appearing, well-nourished, and in no acute distress. HEAD: Normocephalic, atraumatic. EYES: PERRL and EOMI. ENT: Mucous membranes moist. EXTREMITIES: Normal range of motion. No edema. SKIN: Warm, dry . Erythema surrounding the face but mainly of the forehead and periorbital area. Mild edema. No pustules or vesicles. NEURO: Alert and oriented x3. PSYCH: Normal mood and affect. Course Course Emergency Course: Patient felt that contact dermatitis. Benadryl IV x1. Oral prednisone here. He will start his other prednisone tomorrow. Vital Signs Vital signs: Vital Signs Temperature 97.6 F 06/27/24 10:40 Pulse Rate 73 06/27/24 10:40 Respiratory Rate 16 06/27/24 10:40 Blood Pressure 132/76 06/27/24 10:40 Pulse Oximetry 96 06/27/24 10:40 Temperature 97.9 F 06/27/24 11:28 Pulse Rate 64 06/27/24 11:28 Respiratory Rate 18 06/27/24 11:28 Blood Pressure 135/86 06/27/24 11:28 Pulse Oximetry 98 06/27/24 11:28 Medical Decision Making Vital Signs Vital Signs: Vital Signs Temperature 97.6 F 06/27/24 10:40 Pulse Rate 73 06/27/24 10:40 Respiratory Rate 16 06/27/24 10:40 Blood Pressure 132/76 06/27/24 10:40 Pulse Oximetry 96 06/27/24 10:40 Temperature 97.9 F 06/27/24 11:28 Pulse Rate 64 06/27/24 11:28 Respiratory Rate 18 06/27/24 11:28 Blood Pressure 135/86 06/27/24 11:28 Pulse Oximetry 98 06/27/24 11:28 Discharge Plan Discharge Clinical Impression: Contact dermatitis Patient Disposition: Home, Self-Care Condition: Stable Instructions: Contact Dermatitis (ED) Additional Instructions: You may take Zyrtec during the day for itching. You may also take Benadryl as needed for itching and to help you sleep. The prednisone that is being prescribed will help immensely with your rash. You may begin taking it tomorrow as you have already had your 1st dose in the ER. Prescriptions: New prednisone 50 mg tablet 50 mg PO DAILY Qty: 6 0RF No Action atorvastatin 80 mg tablet 80 mg PO DAILY Qty: 30 5RF clopidogrel 75 mg tablet 75 mg PO QAM Qty: 30 5RF Hold Instructions: Resume on 12/08/22. metoprolol tartrate 25 mg tablet 12.5 mg PO BID Qty: 30 5RF famotidine 10 mg tablet 10 mg PO DAILY niacin 500 mg Tablet 500 mg PO TID aspirin 325 mg Tablet 325 mg PO HS topiramate 25 mg tablet 25 mg PO BID Nurtec ODT 75 mg tablet,disintegrating 75 mg PO ONCE PRN (Reason: Migraine Headache) Follow-up/Referrals: Leoncio Tamayo MD [Primary Care Provider] - 1 Week
== END 2024-06-27 13:21 | disposition home or self-care (01) ==
PROVIDERS: Emergency Provider Emergency Medicine; PCP Emergency Medicine
DX: L25.9 Unspecified contact dermatitis, unspecified cause (principal); I51.89 Other ill-defined heart diseases; I25.2 Old myocardial infarction; E78.00 Pure hypercholesterolemia, unspecified; E78.1 Pure hyperglyceridemia; F10.21 Alcohol dependence, in remission; Z95.5 Presence of coronary angioplasty implant and graft; Z90.49 Acquired absence of other specified parts of digestive tract; Z87.891 Personal history of nicotine dependence
CPT/HCPCS: 96374; 99284; J1200; J7512

== ENCOUNTER 2024-07-05 16:02 | Emergency (ER) | payer OTHER, SELFPAY ==
[2024-07-05 16:22] VITALS: BP 150/97; PULSE 90; RESP 16; TEMP 36.4; O2SAT 100
--- NOTE | 2024-07-05 18:36 | ED.ALLEREA ---
HPI - Allergic Reaction General Chief complaint: Allergic Reaction Stated complaint: allergic reaction Time Seen by Provider: 07/05/24 18:21 Source: patient Mode of arrival: ambulatory Limitations: no limitations History of Present Illness HPI narrative: This is a 54 year old male that presents to the ER for rash. Present over the last week. Reports he is having a reaction to poison sumac. He finished a week of steroids without improvement. Has itchy rash to the face, chest, back, groin. Denies difficulty swallowing or trouble breathing. Related Data Home Medications Medication Instructions Recorded Confirmed niacin 500 mg tablet 500 mg PO TID 08/18/21 01/04/23 famotidine 10 mg tablet 10 mg PO DAILY 10/19/22 01/04/23 aspirin 325 mg tablet 325 mg PO HS 11/25/22 01/04/23 rimegepant 75 mg disintegrating 75 mg PO ONCE PRN Migraine Headache 11/25/22 01/04/23 tablet (Nurtec ODT) topiramate 25 mg tablet 25 mg PO BID 11/25/22 01/04/23 Allergies Allergy/AdvReac Type Severity Reaction Status Date / Time tomato Allergy Severe Anaphylaxis Verified 01/04/23 10:49 acetaminophen Allergy Intermediate Vomiting Verified 01/04/23 10:49 Review of Systems Review of Systems: CONSTITUTIONAL: Denies fever SKIN: Reports rash and itching. All systems reviewed & are unremarkable except as noted in HPI and below PMFSH Past Medical History Medical History Diastolic dysfunction Echocardiogram 06/06/2019: EF 65-70%, mild LVH, grade 1 diastolic dysfunction, [id number] aortic insufficiency Hypercholesteremia Hypertriglyceridemia Methamphetamine abuse in remission Myocardial infarction Non-ST elevated myocardial infarction (non-STEMI) Multi-vessel coronary artery disease with 2 cardiac catheterizations October 2018 and June 2019 Recovering alcoholic in remission Right hand fracture Skull fracture Tobacco abuse disorder Ulcer Surgical History Surgical History H/O inguinal hernia repair 12/03/22 Robotic laparoscopic repair bilateral inguinal hernias with mesh History of cardiac catheterization October 2018 and June 2019. History of heart artery stent Patient was transferred to [facility] October 2018 persistent to his left circumflex. He was transferred due to high risk PCI Hx of cholecystectomy Hx of tonsillectomy Status post open reduction with internal fixation of fracture Right 4th metacarpal Family History Family History Mother Diabetes mellitus Heart disease Family history of diabetes mellitus in first degree relative Family history of emphysema Family history of chronic obstructive pulmonary disease Cerebrovascular accident Family history of alcoholism Hypertension Sibling Sleep apnea Sibling Sleep apnea Grandparent , Grandfather with premature coronary artery disease Family history of cardiovascular disease Family history of arthritis Father Family history of alcoholism Social History Social History Social History: The patient reports that he has smoked up to 1.5 packs of cigarettes per day. He is now down to less than a pack of cigarettes per day. He started smoking at age 87 years old. He lives in a house with 7 other individuals including his 2 children, and 4 step children. He has 6 dogs. He used any smoke methamphetamines and crack cocaine but states he has not done so in 13 years. He is recovering alcoholic and quit drinking alcohol 8 years ago. Primary care physician: Dr. Leoncio Strange Code status: Full code Smoking packs per day: 1 Smoking cigarettes per day: 20.0 Years smoked: 44 Smoking pack-years: 44.00 Smoking status: Former smoker Second hand tobacco smoke exposure: Yes Alcohol intake: former Alcohol use details: QUIT LATE 2015/EARLY 2016 Substance use: current Substance use type: marijuana and methamphetamine Other substance usage details: THC FOR ANXIETY AND SLEEP Last use: QUIT METH 2005 Lack of Transportation: No Lack of Food: Never True Current Housing: I Have Housing Concerned About Future Housing: No Difficulty Paying Gas/Electric Bills: No Difficulty Paying for Meds: No Currently Unemployed: No Education: Decline to Answer Difficulty w/ Childcare or Family Care: No Living arrangements: with family Occupation/Education: unemployed Gender identity (if verbalized by the patient): Male Spiritual care concerns: No Agree to blood products: Yes Exam Narrative: GENERAL: Well-appearing, well-nourished, and in no acute distress. HEAD: Normocephalic, atraumatic. EYES: EOMI. ENT: Nares clear, no rhinorrhea or epistaxis. Mucous membranes moist. Oropharynx without tonsillar hypertrophy exudate or other lesions. Bilateral TMs pearly gomez non-bulging NECK: Supple. No adenopathy or masses. CHEST: Clear to auscultation. No respiratory distress. No wheezes rales or rhonchi HEART: Regular rate and rhythm. No murmur heard. Normal peripheral pulses. EXTREMITIES: Normal range of motion. No edema. SKIN: Warm, dry. Red, papular rash to the chest, arms, back, groin. Redness and swelling noted around the eyes NEURO: No focal deficits. Alert and oriented x3. PSYCH: Normal mood and affect Course Course Emergency Course: Patient agrees with plan of care Vital Signs Vital signs: Vital Signs Temperature 97.6 F 07/05/24 16:22 Pulse Rate 90 07/05/24 16:22 Respiratory Rate 16 07/05/24 16:22 Blood Pressure 150/97 H 07/05/24 16:22 Pulse Oximetry 100 07/05/24 16:22 Oxygen Delivery Room Air 07/05/24 16:22 Temperature 97.6 F 07/05/24 16:22 Pulse Rate 90 07/05/24 16:22 Respiratory Rate 16 07/05/24 16:22 Blood Pressure 150/97 H 07/05/24 16:22 Pulse Oximetry 100 07/05/24 16:22 Oxygen Delivery Room Air 07/05/24 18:40 MDM - Allergic Reaction MDM Narrative Medical decision making narrative: Patient presents to the emergency department for contact dermatitis. Had finished 6 days of a steroid without improvement. Will be started on longer taper and was instructed to follow up with primary provider. He was given warnings to return to the ER Critical Care Time Critical Care Time Critical Care Time: No Discharge Plan Discharge Clinical Impression: Contact dermatitis Qualifiers: Contact dermatitis type: irritant Contact dermatitis trigger: non-food plants Qualified Code(s): L24.7 - Irritant contact dermatitis due to plants, except food Patient Disposition: Home, Self-Care Condition: Stable Instructions: Contact Dermatitis (ED) Additional Instructions: Return to the emergency department if you experience fever, redness and swelling of your wounds, abnormal drainage from your wounds, or any other symptoms that are concerning to you Take a Pepcid daily. Take Zyrtec twice ddaily. Take steroid taper as prescribed. Benadryl as needed for severe itching Follow-up with primary care doctor Prescriptions: New prednisone 10 mg tablet See Taper PO DAILY 15 Days Qty: 45 0RF Taper: Prednisone Taper from 50 mg;15 days 50 mg DAILY for 3 Days and 0 Hour 40 mg DAILY for 3 Days and 0 Hour 30 mg DAILY for 3 Days and 0 Hour 20 mg DAILY for 3 Days and 0 Hour 10 mg DAILY for 3 Days and 0 Hour No Action atorvastatin 80 mg tablet 80 mg PO DAILY Qty: 30 5RF clopidogrel 75 mg tablet 75 mg PO QAM Qty: 30 5RF Hold Instructions: Resume on 12/08/22. metoprolol tartrate 25 mg tablet 12.5 mg PO BID Qty: 30 5RF famotidine 10 mg tablet 10 mg PO DAILY niacin 500 mg Tablet 500 mg PO TID aspirin 325 mg Tablet 325 mg PO HS topiramate 25 mg tablet 25 mg PO BID Nurtec ODT 75 mg tablet,disintegrating 75 mg PO ONCE PRN (Reason: Migraine Headache) prednisone 50 mg tablet 50 mg PO DAILY Qty: 6 0RF Follow-up/Referrals: Leoncio Tamayo MD [Primary Care Provider] -
[2024-07-05] MEDS: methylPREDNISolone SOD SUCC 125 MG VIAL IV PUSH (18:53)
[2024-07-05] MEDS: diphenhydrAMINE HCl INJ 50 MG/ML VIAL 25 MG IV PUSH (18:55)
[2024-07-05] MEDS: FAMOTIDINE 20 MG/2 ML VIAL IV PUSH (18:56)
[2024-07-05 20:48] VITALS: BP 129/82; PULSE 85; RESP 14; TEMP 36.9; O2SAT 99
== END 2024-07-05 20:52 | disposition home or self-care (01) ==
PROVIDERS: Emergency Provider Physician Assistant; PCP Emergency Medicine
DX: L24.7 Irritant contact dermatitis due to plants, except food (principal); I11.9 Hypertensive heart disease without heart failure; I25.2 Old myocardial infarction; E78.1 Pure hyperglyceridemia; E78.00 Pure hypercholesterolemia, unspecified; F17.210 Nicotine dependence, cigarettes, uncomplicated; F10.21 Alcohol dependence, in remission; Z79.02 Long term (current) use of antithrombotics/antiplatelets; Z79.899 Other long term (current) drug therapy
CPT/HCPCS: 96374; 96375; 99284; J1200; J2919